=== PATIENT | female | born 1960 | race Caucasian/White ===

== ENCOUNTER → 2017-10-29 06:35 | Outpatient (CLI) | payer MEDICARE, SELFPAY ==
--- NOTE | 2017-10-29 14:02 | STRESSREP ---
Stress Test Report Date: 10/29/2017 Procedure: Pharmacologic stress nuclear imaging study Indications: Chest pain Consent: Per the patient Procedure: The patient underwent pharmacologic (Regadenoson) evaluation with a peak heart rate of 100 beats per minute (60 predicted maximal heart rate) and a peak blood pressure of 142/90 mmHg. The baseline ECG demonstrated normal sinus rhythm. The peak pharmacologic ECG demonstrated no obvious ECG changes. There were no cardiac dysrhythmias pretest, during pharmacologic infusion, or recovery. There was no complaint of chest discomfort during pharmacologic infusion or recovery. The examination was discontinued secondary to completion of protocol. Impression: 1. Pharmacologic (Regadenoson) evaluation 2. Peak pharmacologic ECG with no obvious ECG changes. 3. There were no cardiac dysrhythmias pretest, during pharmacologic infusion, or recovery 4. Nuclear images pending Myocardial perfusion imaging study: Technique: The patient was injected with 10.7 millicuries of technetium 99m Cardiolite and subsequently rest SPECT Cardiolite nuclear imaging was obtained in the horizontal long, vertical long, and short axis views. The patient underwent pharmacologic (Regadenoson) evaluation with a peak heart rate of 100 beats per minute (60 % percent predicted maximal heart rate) and a peak blood pressure of 142/90 mmHg. The patient was injected with 32.1 millicuries of technetium 99m Cardiolite and subsequently stress SPECT Cardiolite nuclear imaging was obtained in the horizontal long, vertical long, and short axis views. A gated Cardiolite study at peak stress was obtained. Interpretation: Rest and stress SPECT Cardiolite nuclear imaging status post realignment, normalization, and attenuation correction demonstrate relative uniform tracer uptake and myocardial perfusion appearing within normal limits. There is end systolic thickening and brightening. The gated Cardiolite study demonstrates myocardial thickening and inward wall motion. The reported LVEF is 72 %. Impression: 1. Rest and stress SPECT Cardiolite nuclear imaging demonstrate relative uniform tracer uptake and myocardial perfusion appearing within normal limits. 2. The gated Cardiolite study reports an LVEF of 72 %. This note was generated with [employer] software. It may contain incorrect words, spelling, and punctuation that were not noted in checking the note before signing.
== END ==
PROVIDERS: Family Provider Internal Medicine; PCP Internal Medicine; Visit Provider Nurse Practitioner Family
DX: R07.9 Chest pain, unspecified (principal); R06.09 Other forms of dyspnea; F17.210 Nicotine dependence, cigarettes, uncomplicated
CPT/HCPCS: 78452; 93017; A9500; A4216; J2785

== ENCOUNTER → 2017-11-19 07:20 | Outpatient (CLI) | payer MEDICARE, SELFPAY ==
[2017-11-19 10:40] LABS: Absolute Lymphocyte Count 1.57 X10^3/ul (0.83-4.51); Absolute Neutrophil Count 3.2 X10^3/uL (2.0-7.7); Basophil# 0.04 X10^3/uL; Basophil% 0.7 % (0-1); Eosinophil# 0.14 X10^3/uL; Eosinophils% 2.6 % (0-5); Hematocrit 44.5 % (37-47); Hemoglobin 14.6 g/dl (12.0-15.0); Lymphocyte # 1.57 X10^3/ul (4.0); Lymphocyte % 29.4 % (19-41); Mean Corp Hgb Conc 32.8 g/gl (32-36); Mean Corpuscular Volume 100.7 fL (81-99); Mean Platelet Vol. 10.1 fl (6.2-12.0); Monocyte# 0.34 X10^3/uL; Monocyte% 6.4 % (0-10); Neutrophil # 3.24 X10^3/uL (2.7-7.7); Neutrophil % 60.7 % (47-70); Platelet Count 275 K/mm3 (150-450); RBC Distribution Width SD 47.4 fl (35.1-43.9); Red Blood Count 4.42 M/mm3 (4.2-5.4); White Blood Count 5.3 K/mm3 (4.4-11.0)
[2017-11-19 10:48] LABS: POSITIVE COUNT NO; POSITIVE DIFFERENTIAL NO; POSITIVE MORPHOLOGY NO
[2017-11-19 10:56] LABS: ALB/GLOB Ratio 1.2 RATIO (0.9-2.4); AST(SGOT) 20 U/L (15-37); Alanine Aminotransfer ALT/SGPT 25 U/L (13-56); Albumin, Serum 3.7 g/dL (3.2-5.0); Alkaline Phosphatase 76 U/L (45-117); Anion Gap 8 (5-15); BUN 19 mg/dL (7-18); BUN/Creat Ratio 22.5 RATIO (10-20); Calcium,Total 8.6 mg/dL (8.5-10.1); Chloride 107 mmol/L (98-107); Cholesterol 189 mg/dL (200); Creatinine, Serum 0.84 mg/dL (0.55-1.02); EST Glomerular Filtration Rate 74 mL/min (>60); Est Glom Filt Rate - Afr Amer 90 mL/min (>60); Globulin 3.1 g/dL (2.2-4.2); Glucose 82 mg/dL (74-106); High Density Lipoprotein 68 mg/dL; Potassium 3.8 mmol/L (3.5-5.1); Protein, Total 6.8 g/dL (6.4-8.2); Sodium Level 143 mmol/L (136-145); Triglycerides 77 mg/dL; Very Low Density Lipoprotein 15 mg/dL (5-40)
[2017-11-19 10:59] LABS: Vitamin B12 1991 pg/mL (211-911)
== END ==
PROVIDERS: Family Provider Internal Medicine; PCP Internal Medicine; Visit Provider Internal Medicine
DX: E53.8 Deficiency of other specified B group vitamins (principal); E55.9 Vitamin D deficiency, unspecified; I10 Essential (primary) hypertension; J02.9 Acute pharyngitis, unspecified
CPT/HCPCS: 36415; 80053; 80061; 82306; 82607; 85025

== ENCOUNTER → 2017-11-25 10:47 | Outpatient (CLI) | payer MEDICARE, SELFPAY | PROVIDERS: Family Provider Internal Medicine; PCP Internal Medicine; Visit Provider Internal Medicine | DX: Z78.0 Asymptomatic menopausal state (principal) | CPT/HCPCS: 77080 ==

== ENCOUNTER → 2018-04-20 15:22 | Outpatient (CLI) | payer MEDICARE, SELFPAY ==
[2018-04-06 10:02] VITALS: BMI 25.4
[2018-04-20 17:51] LABS: Anion Gap 6 (5-15); BUN 19 mg/dL (7-18); BUN/Creat Ratio 19.3 RATIO (10-20); Calcium,Total 8.6 mg/dL (8.5-10.1); Chloride 107 mmol/L (98-107); Creatinine, Serum 0.98 mg/dL (0.55-1.02); EST Glomerular Filtration Rate 62 mL/min (>60); Est Glom Filt Rate - Afr Amer 75 mL/min (>60); Glucose 87 mg/dL (74-106); Sodium Level 143 mmol/L (136-145)
--- OUTSIDE RECORDS SUMMARY | 2018-06-25 14:45 | XMS RPT_ITS ---
:1960 Author Organization OHIP Support Name Relationship Address Phone D Unavailable Unavailable Unavailable JOSE, JUAN Unavailable Unavailable + JOSE, BETI Unavailable Unavailable + D Unavailable Unavailable Unavailable JOSE, JUAN Unavailable . + [place] [address] JOSE, BETI Unavailable . + [place] [address] D Unavailable Unavailable Unavailable JOSE, JUAN Unavailable . + [place] [address] JOSE, BETI Unavailable . + [place] [address] D Unavailable Unavailable Unavailable JOSE, JUAN Unavailable . + [place] [address] JOSE, BETI Unavailable . + [place] [address] D Unavailable Unavailable Unavailable JOSE, JUAN Unavailable . + [place] [address] JOSE, BETI Unavailable . + [place] [address] D Unavailable Unavailable Unavailable JOSE, JUAN Unavailable . + [place] [address] JOSE, BETI Unavailable . + [place] [address] D Unavailable Unavailable Unavailable JOSE, JUAN Unavailable . + [place] [address] D Unavailable Unavailable Unavailable JOSE, JUAN Unavailable Unavailable + [place] [address] D Unavailable Unavailable Unavailable JOSE, JUAN Unavailable . + [place] [address] JOSE, BETI Unavailable . + [place] [address] [employer] Unavailable [address] [place] [address] JOSE, JUAN Unavailable [address] + [place] [address] [employer] Un[address] [place] [address] JUAN GARCIA Unavailable [address] + [place] [address] [employer] Unavailable [address] [place] [address] JOSE JUAN Unavailable [address] + [place] [address] [employer] Unavailable [address] [place] [address] JOSE JUAN Unavailable [address] + [place] [address] [employer] Unavailable [address] [place] [address] JUAN GARCIA Unavailable [address] + [place] [address] Care Team Providers Name Role Phone [place] Fall NURSE WOUND CARE-C Attending Unavailable Oleghe, Efewongbe Referring Unavailable [place] Fall NURSE WOUND CARE-C Attending Unavailable [place] Fall NURSE WOUND CARE-C Referring Unavailable Oleghe, Efewongbe Primary Care Unavailable Oleghe, Efewongbe Attending Unavailable Oleghe, Efewongbe Referring Unavailable Oleghe, Efewongbe Primary Care Unavailable Oleghe, Efewongbe Attending Unavailable Oleghe, Efewongbe Referring Unavailable Oleghe, Efewongbe Primary Care Unavailable Oleghe, Efewongbe Attending Unavailable Oleghe, Efewongbe Referring Unavailable John Dobson Attending Unavailable Oleghe, Efewongbe Referring Unavailable Sree Sahu Attending Unavailable John Dobson Referring Unavailable Sree Sahu Attending Unavailable Sree Sahu Referring Unavailable Oleghe, Efewongbe Primary Care Unavailable Oleghe, Efewongbe Attending Unavailable Oleghe, Efewongbe Referring Unavailable Oleghe, Efewongbe Primary Care Unavailable Oleghe, Efewongbe Attending Unavailable Oleghe, Efewongbe Referring Unavailable Oleghe, Efewongbe Primary Care Unavailable Oleghe, Efewongbe Attending Unavailable Oleghe, Efewongbe Primary Care Unavailable John Dobson Attending Unavailable Oleghe, Efewongbe Attending Unavailable Oleghe, Efewongbe Referring Unavailable Oleghe, Efewongbe Primary Care Unavailable Oleghe, Efewongbe Attending Unavailable Oleghe, Efewongbe Referring Unavailable PROBLEMS PROBLEMS DATE TYPE CONDITION / CODE ATTENDING STATUS SOURCE 04/20/2018 Unknown I10 - Essential [place] Fall Active [place] (primary) NURSE WOUND CARE-C [facility] hypertension / Hospital I10(ICD-10) Repository 11/22/2017 Unknown E53.8 - Deficiency Oleghe, Active [place] of other specified [facility] B group vitamins / Hospital E53.8(ICD-10) Repository 11/11/2017 Unknown E55.9 - Vitamin D Oleghe, Active [place] deficiency, [facility] unspecified / Hospital E55.9(ICD-10) Repository 11/11/2017 Unknown J02.9 - Acute Oleghe, Active [place] pharyngitis, [facility] unspecified / Hospital J02.9(ICD-10) Repository 11/11/2017 Unknown Z78.0 - Oleghe, Active [place] Asymptomatic [facility] menopausal state / Hospital Z78.0(ICD-10) Repository 10/22/2017 Unknown R07.9 - Chest pain, Sree Sahu Active [place] unspecified / Community R07.9(ICD-10) Hospital Repository 10/22/2017 Unknown R06.09 - Other Sree Sahu Active [place] forms of dyspnea / Community R06.09(ICD-10) Hospital Repository 10/22/2017 Unknown F17.210 - Nicotine Sree Sahu Active [place] dependence, [facility] cigarettes, Hospital uncomplicated / Repository F17.210(ICD-10) 07/23/2017 Unknown N76.89 - Other Oleghe, Active [place] specified [facility] inflammation of Hospital vagina and vulva / Repository N76.89(ICD-10) PROCEDURES PROCEDURES No Procedure Records FoundRESULTS RESULTS BASIC METABOLIC Collected: 04/20/2018 Status: F Source: [place] PROFILE (BMP) 3:32 PM [facility] REPOSITORY TYPE CODE TESTS RESULT OUT OF RANGE REFERENCE UNITS LAB L501.0100 74-106 mg/dL Normal GLU 87 Result Comment: Please note revised GLUCOSE reference range effective 2017. LAB L501.1000 7-18 mg/dL High BUN 19 LAB L501.1100 0.55-1.02 mg/dL Normal CREAT,SERUM 0.98 Result Comment: The validity of the calculated GFR AND GFRAA in patients over 70 years has not been determined. Clinical correlation is essential. LAB L501.1110 >60 mL/min Normal EST GFR 62 Result Comment: Non- GFR Calc LAB L501.1115 >60 mL/min Normal EST GFR - AA 75 Result Comment: GFR Calc LAB L501.1300 10-20 RATIO Normal BUN/CRE 19.3 LAB L501.2200 8.5-10.1 mg/dL CA Normal 8.6 LAB L501.5300 136-145 mmol/L NA Normal 143 LAB L501.5600 3.5-5.1 mmol/L K Normal 4.0 LAB L501.5900 98-107 mmol/L CL Normal 107 LAB L501.6100 21.0-32.0 mmol/L Normal CO2 30.0 LAB L501.6200 5-15 Normal GAP 6 Performed By: #### L500.2500 #### [facility] [address] [place], [address] INTERNAL MEDICINE Observed: 04/10/2018 Status: F Source: [place] OFFICE VISIT 4:56 PM [facility] REPOSITORY [facility] [address] [place] [address] OFFICE VISIT Date of Service: 04/06/18 MR#: [id number] Acct: [id number] Name: MARIANNE GARCIA Rep #: [id number] : 1960 Provider: Boston Fall NP Age/Sex: 58/F Location: [facility] Status: Signed Intake Vital Signs04/06/18 Height 5 ft 6 in 04/06/18 Weight: 158 lb 04/06/18 Body Mass Index (BMI) 25.4 04/06/18 Blood Pressure 153/92 H Intake Visit Reasons: HTN with symptoms Chief Complaint: HTN - blurry vision, headache, AND ringing in ears Is patient in pain?: No Allergies modafinil [From Provigil] Allergy (Verified 04/06/18 10:04) Other Medications Aspirin E.C. [Ecotrin] 81 mg PO DAILY@0800 04/15/15 [History Confirmed 04/06/18] Cholecalciferol (VIT D3) [Vitamin D3] 4,000 unit PO DAILY 04/15/15 [History Confirmed 04/06/18] Clonazepam [Klonopin] 0.25 mg PO TID PRN PRN 04/15/15 [History Confirmed 04/06/18] Cyanocobalamin (Vitamin B-12) [Vitamin B-12] 1,000 mcg PO DAILY 04/15/15 [History Confirmed 04/06/18] Ferrous Sulfate [Iron Supplement] 65 mg PO DAILY 04/15/15 [History Confirmed 04/06/18] Ibuprofen [Motrin] 600 mg PO TID PRN PRN 04/15/15 [History Confirmed 04/06/18] traMADol [Ultram] 100 mg PO Q8H PRN PRN 04/15/15 [History Confirmed 04/06/18] Aspirin/Acetaminophen/Caffeine [Excedrin Extra Strength Caplet] 2 tab PO PRN PRN 07/01/15 [History Confirmed 04/06/18] Baclofen 1 - 2 tab PO QHS PRN 07/01/15 [History Confirmed 04/06/18] buspirone 5 mg tablet 5 mg PO TID tab 04/14/17 [History Confirmed 04/06/18] propranolol 40 mg tablet 40 mg PO Q12H #180 tab 06/24/17 [Rx Confirmed 04/06/18] duloxetine 30 mg capsule,delayed release 30 mg PO BID 07/23/17 [History Confirmed 04/06/18] pramipexole 0.5 mg tablet 0.5 mg PO QHS #60 tab 11/01/17 [Rx Confirmed 04/06/18] fluticasone 50 mcg/actuation nasal spray,suspension 2 spray INTRANASAL DAILY PRN PRN #19.8 g 11/11/17 [Rx Confirmed 04/06/18] omeprazole 20 mg capsule,delayed release 20 mg PO QDAY #60 cap 11/11/17 [Rx Confirmed 04/06/18] dicyclomine 20 mg tablet 20 mg PO TID PRN #60 tab 01/18/18 [Rx Confirmed 04/06/18] fluocinonide 0.05 % topical cream 1 applic TOPICAL BID-QID PRN 01/18/18 [History Confirmed 04/06/18] metronidazole 0.75 % lotion 1 applic TOPICAL BID 01/18/18 [History Confirmed 04/06/18] albuterol sulfate HFA 90 mcg/actuation aerosol inhaler 1 puff INHALATION Q6H PRN #8.5 g 04/06/18 [Rx Confirmed 04/06/18] lamotrigine 100 mg tablet 100 mg PO BID 04/06/18 [History Confirmed 04/06/18] lisinopril 10 mg tablet 10 mg PO QDAY #30 tab 04/06/18 [Rx Confirmed 04/06/18] trazodone 100 mg tablet 100 mg PO DAILY 04/06/18 [History Confirmed 04/06/18] [facility] Medical History Hypertension (Chronic) Transverse myelitis (Chronic) Breast cancer (Chronic) Mitral valve prolapse (Chronic) Vitamin B12 deficiency (Chronic) Vitamin D deficiency (Chronic) GERD (gastroesophageal reflux disease) (Chronic) IBS (irritable bowel syndrome) (Chronic) Depression with anxiety (Chronic) Asthma (Chronic) Seasonal allergies (Chronic) Contact dermatitis (Acute) HPV test positive (Acute) History of hysterectomy (Acute) Anorexia (Resolved) Surgical History Anal fissure and fistula (Acute) H/O laparoscopy (Acute) History of colon resection (Acute) carpal tunnel release surgery (Acute) lumpecomy and lymph node biopsy of the right breast (Acute) right and left foot surgery (Acute) uterine balloon ablation (Acute) Family History Father CVA (cerebral vascular accident) Hypertension Mother Depression Anxiety Asthma COPD (chronic obstructive pulmonary disease) Sister Lupus Grandmother Asthma Social History Smoking Status: Heavy Smoker (>10/day) alcohol intake: current alcohol intake frequency: a few times a week Alcohol type: wine substance use type: does not use what type of physical activity do you participate in: none HPI HPI Chief Complaint: HTN - blurry vision, headache, AND ringing in ears Details: MARIANNE GARCIA, is a 58 F who presents to the office today for an acute visit of high blood pressure. She has a past medical history is as above. The patient states that over the last couple weeks she has noticed that her blood pressure has been increasing and she brings with her a log that averages 150s-170s systolic over 90s to low 100s diastolic. The patient states that she has had an increase in headaches, blurry vision at times and ringing the ears at times which she attributes to her high blood pressure. She denies any excessive sodium intake and states that she has been limiting her caffeine intake. Her blood pressure in office is elevated at 153/92. She denies any other aggravating or relieving symptoms. The patient otherwise denies any fever, chills, nausea, vomiting, shortness of breath, chest pain or pressure, palpitations, orthopnea, lower extremity edema, syncope or presyncopal episodes. ROS Const Constitutional: Positive for headache(s) (Continous); no chills, fatigue, fever(s), frequent falls, malaise, weakness, sleep problems or change in appetite Eyes Eyes: Positive for blurry vision; no change in vision, double vision, discharge or visual disturbances ENT ENT: Positive for tinnitus (Worse) and headache(s) (Continous); no abnormal hearing, ear pain, ear pressure or dizziness/vertigo Resp Respiratory: No cough, shortness of breath or wheezing Cardio Cardiology: No chest pain at rest, chest pain with exertion, shortness of breath, dyspnea on exertion, generalized swelling, irregular heart rhythm, lightheadedness, orthopnea, fast heart rate or palpitations Gastro GI: No abdominal pain, change in bowel habits, constipation, diarrhea, nausea/dyspepsia or vomiting Genitourinary-Female: No difficulty urinating, burning urination, painful urination, urinary incontinence, urinary frequency, urinary urgency, urinary hesitancy, urinary retention, Frequent nighttime urination/ nocturia, sexual problems, genital lesions, abnormal vaginal bleeding, pelvic pain, vaginal dryness, vaginal odor or Vaginal Itching Musc Musculoskeletal: No joint pain, back pain, joint swelling, limited range of motion, numbness, tingling or muscle weakness Skin Skin: No change in skin color, itching, rash or wounds Breast Breast: No breast lump or breast pain Neuro Neurology: Positive for headache(s) (Continous); no frequent falls, weakness, visual disturbances, abnormal hearing, numbness, tingling, unsteady gait/balance, dizziness, loss of vision or memory loss Psych Psychiatric: No change in appetite, No memory loss, No anxiety, No depression, No Thoughts of harming yourself/Others Endo Endocrine: No fatigue, heat intolerance, increased thirst/drinking, increased hunger or increased urination Aller/Imm Allergy/Immunologic: No wheezing, itchy eyes or seasonal allergy symptoms Tomas/Lymp Hematologic/Lymphatic: No easy bleeding, easy bruising or enlarged lymph nodes Exam Const General: cooperative, no acute distress, well developed Orientation: alert, awake, oriented x3 HENMT Head: atraumatic, normocephalic Ears: hearing grossly normal bilaterally Resp Effort AND Inspection: normal respiratory effort, able to speak in complete sentences Auscultation: Bilateral: Clear to Auscultation Cardio Rate: regular rate Rhythm: regular rhythm Heart Sounds: S1 normal, S2 normal GI Inspection: normal to inspection Palpation: soft, no hepatosplenomegaly Musc Musculoskeletal: No muscle weakness Neuro General: alert, awake, oriented x3, moves all extremities, CN's II-XI intact bilaterally, no focal motor deficits, gait normal, tone normal Motor: strength 5/5 throughout, muscle tone normal throughout Extrem General: no clubbing, cyanosis or edema Psych Appearance: grossly normal Mental Status: mental status grossly normal Affect: normal affect Assessment AND Plan Problems 1. Essential hypertension I10 Plan Hypertension: Blood pressure is suboptimal at this time. Will make changes to current medication regimen which include the addition of lisinopril 10 mg daily. Baseline labs reviewed. Educated patient on the potential side effects of the new medication and to keep a log of their blood pressures at home discussed dropping off the log in 2 weeks. Discussed risk factor reduction and lifestyle modifications. Discussed dietary changes that should be considered which include reducing the amount of sodium intake. Patient instructed to follow up in 6 weeks for hypertension follow up visit and a BMP will be done in 2 weeks. Orders Orders: Medications New: albuterol sulfate HFA 90 mcg/actuation (ProAi1 puff Inhalation Q6H PRN 8.5 grams 1RF shor r HFA) tness of breath or wheezing Plan Detail Follow Up 6 weeks or sooner if needed Coding Level of Care Code Off vis,est,level 3 Diagnoses Essential hypertension I10 Hypertension type: essential hypertension 04/10/18 6950 <Electronically signed by [place] Fall NURSE WOUND CAREDamasoC> Date Boston Calderonder NURSE WOUND CARE-C Cosigner Signature: Date (if applicable) CC: INTERNAL MEDICINE Observed: 01/20/2018 Status: F Source: [place] OFFICE VISIT 5:02 PM [facility] [address] [place] [address] OFFICE VISIT Date of Service: 01/18/18 MR#: [id number] Acct: [id number] Name: MARIANNE GARCIA Rep #: [id number] : 1960 Provider: Jayden Smith MD Age/Sex: 58/F Location: [facility] Status: Signed Intake Vital Signs01/18/18 Height 5 ft 6 in Intake Visit Reasons: 1 MO FU Chief Complaint: Problem with legs feeling weak AND Bowel problems Is patient in pain?: Yes (hip pain) Pain scale (1-10): 3 Allergies modafinil [From Provigil] Allergy (Verified 12/21/17 09:19) Other Medications Aspirin E.C. [Ecotrin] 81 mg PO DAILY@0800 04/15/15 [History Confirmed 12/21/17] Cholecalciferol (VIT D3) [Vitamin D3] 4,000 unit PO DAILY 04/15/15 [History Confirmed 12/21/17] Clonazepam [Klonopin] 0.25 mg PO TID PRN PRN 04/15/15 [History Confirmed 12/21/17] Cyanocobalamin (Vitamin B-12) [Vitamin B-12] 1,000 mcg PO DAILY 04/15/15 [History Confirmed 12/21/17] Ferrous Sulfate [Iron Supplement] 65 mg PO DAILY 04/15/15 [History Confirmed 12/21/17] Ibuprofen [Motrin] 600 mg PO TID PRN PRN 04/15/15 [History Confirmed 12/21/17] traMADol [Ultram] 100 mg PO Q8H PRN PRN 04/15/15 [History Confirmed 12/21/17] Aspirin/Acetaminophen/Caffeine [Excedrin Extra Strength Caplet] 2 tab PO PRN PRN 07/01/15 [History Confirmed 12/21/17] Baclofen 1 - 2 tab PO QHS PRN 07/01/15 [History Confirmed 12/21/17] buspirone 5 mg tablet 5 mg PO TID tab 04/14/17 [History Confirmed 12/21/17] propranolol 40 mg tablet 40 mg PO Q12H #180 tab 06/24/17 [Rx Confirmed 12/21/17] duloxetine 30 mg capsule,delayed release 30 mg PO BID 07/23/17 [History Confirmed 12/21/17] pramipexole 0.5 mg tablet 0.5 mg PO QHS #60 tab 11/01/17 [Rx Confirmed 12/21/17] fluticasone 50 mcg/actuation nasal spray,suspension 2 spray INTRANASAL DAILY PRN PRN #19.8 g 11/11/17 [Rx Confirmed 12/21/17] omeprazole 20 mg capsule,delayed release 20 mg PO QDAY #60 cap 11/11/17 [Rx Confirmed 12/21/17] trazodone 50 mg tablet 50 mg PO QHS 12/21/17 [History Confirmed 12/21/17] fluocinonide 0.05 % topical cream 1 applic TOPICAL BID-QID PRN 01/18/18 [History Confirmed 01/18/18] ketoconazole 2 % shampoo 1 applic TOPICAL Q2W 01/18/18 [History Confirmed 01/18/18] lamotrigine 25 mg tablet 25 mg PO BID 01/18/18 [History Confirmed 01/18/18] metronidazole 0.75 % lotion 1 applic TOPICAL BID 01/18/18 [History Confirmed 01/18/18] Post menopausal: Yes PFSH Medical History Hypertension (Chronic) Transverse myelitis (Chronic) Breast cancer (Chronic) Mitral valve prolapse (Chronic) Vitamin B12 deficiency (Chronic) Vitamin D deficiency (Chronic) GERD (gastroesophageal reflux disease) (Chronic) IBS (irritable bowel syndrome) (Chronic) Depression with anxiety (Chronic) Asthma (Chronic) Seasonal allergies (Chronic) Contact dermatitis (Acute) HPV test positive (Acute) History of hysterectomy (Acute) Anorexia (Resolved) Surgical History Anal fissure and fistula (Acute) H/O laparoscopy (Acute) History of colon resection (Acute) carpal tunnel release surgery (Acute) lumpecomy and lymph node biopsy of the right breast (Acute) right and left foot surgery (Acute) uterine balloon ablation (Acute) Family History Father CVA (cerebral vascular accident) Hypertension Mother Depression Anxiety Asthma COPD (chronic obstructive pulmonary disease) Sister Lupus Grandmother Asthma Social History Smoking Status: Heavy Smoker (>10/day) alcohol intake: current alcohol intake frequency: a few times a week Alcohol type: wine substance use type: does not use what type of physical activity do you participate in: none HPI HPI Chief Complaint: Problem with legs feeling weak AND Bowel problems Details: MARIANNE GARCIA, is a 58yo F who presents to the office today due to concerns of occasional leg weakness and right hip pain. She was seen about a month ago predominantly right lower extremity heaviness. She now reports right hip pain which is said to be worse with initial movement and on laying on that side. 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 There is no numbness or tingling no other neurological deficits. She is not able to exercise due to her long periods of driving. Also has a history of irritable bowel syndrome and reports bloating/constipation. She denies blood in her stool. Last colonoscopy was about 2 years ago and this was within normal. ROS Const Constitutional: No weight change, body ache, chills, fatigue, sleep problems, fever(s), change in appetite, snoring, weakness, frequent falls, headache(s) or excessive sweating Eyes Eyes: No change in vision, eye pain, light sensitivity or blurry vision ENT ENT: No headache(s), abnormal hearing, ear pain, tinnitus, nasal congestion, sore throat or neck pain Resp Respiratory: No snoring, cough, shortness of breath or wheezing Cardio Cardiology: No excessive sweating, chest pain at rest, chest pain with exertion, shortness of breath, dyspnea on exertion, palpitations, orthopnea or lightheadedness Gastro GI: Positive for bloating; no abdominal pain, change in bowel habits, constipation, diarrhea, vomiting, nausea/dyspepsia or cramping Genitourinary-Female: No burning urination, painful urination, urinary incontinence, urinary frequency, abnormal vaginal bleeding, pelvic pain or other Musc Musculoskeletal: Positive for other (right hip pain); no neck pain, abnormal walking, joint pain, back pain, limited range of motion, numbness, tingling or muscle weakness Skin Skin: No redness, dry skin, itching, lesions, wounds or rash Neuro Neurology: No weakness, frequent falls, headache(s), abnormal hearing, abnormal walking, numbness, tingling, abnormal speech, dizziness or memory loss Psych Psychiatric: No change in appetite, No memory loss, No anxiety, No depression, No Thoughts of harming yourself/Others Endo Endocrine: No fatigue, excessive sweating, cold intolerance, increased thirst/drinking, heat intolerance, flushing or increased hunger Aller/Imm Allergy/Immunologic: No wheezing, itchy eyes, hives or seasonal allergy symptoms Tomas/Lymp Hematologic/Lymphatic: No easy bleeding, easy bruising or enlarged lymph nodes Exam Const General: cooperative, no acute distress, well developed Orientation: alert, awake, oriented x3 HENMT Head: atraumatic, normocephalic Ears: hearing grossly normal bilaterally Resp Effort AND Inspection: normal respiratory effort, able to speak in complete sentences Auscultation: Bilateral: Clear to Auscultation Cardio Rate: regular rate Rhythm: regular rhythm Heart Sounds: S1 normal, S2 normal GI Inspection: normal to inspection Palpation: soft, no hepatosplenomegaly Musc Musculoskeletal: No muscle weakness Thoracic/Lumbar Spine: straight leg raise negative bilaterally Neuro General: alert, awake, oriented x3, moves all extremities, CN's II-XI intact bilaterally, no focal motor deficits, gait normal, tone normal Motor: strength 5/5 throughout, muscle tone normal throughout Extrem General: no clubbing, cyanosis or edema Psych Appearance: grossly normal Mental Status: mental status grossly normal Affect: normal affect Assessment AND Plan 1. Hip pain, right M25.551 Plan Most likely secondary to osteoarthritis. NSAIDs as needed. Exercise also recommended. Due to her frequent traveling/being on the road, not open to physical therapy at this time. Advised to call with worsening symptoms or concerns. 2. Lower extremity pain M79.606 Plan I believe this is mostly due to lifestyle. No concerns on examination at this time. 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 Follow-up at next visit. 3. IBS (irritable bowel syndrome) K58.9 Plan Next. Currently concerned with bloating and constipation. However frequently has diarrhea with laxatives. Lifestyle modifications discussed. Increase fluid, increased fiber intake and continued use of probiotics recommended for now. Dicyclomine as needed. Follow-up at next visit. This note was generated with [employer] dictation software. It may contain incorrect words, spelling, and punctuation that were not noted in checking the note before signing. Coding Level of Care Code Off vis,est,level 3 Diagnoses Hip pain, right M25.551 Lower extremity pain M79.606 IBS (irritable bowel syndrome) K58.9 01/20/18 1702 <Electronically signed by Jayden Smith MD> Date Jayden Smith MD Cosigner Signature: Date (if applicable) CC: INTERNAL MEDICINE Observed: 12/21/2017 Status: F Source: [place] OFFICE VISIT 5:16 PM [facility] [employer], [place] [address] OFFICE VISIT Date of Service: 12/21/17 MR#: [id number] Acct: [id number] Name: MARIANNE GARCIA Rep #: [id number] : 1960 Provider: Jayden Smith MD Age/Sex: 57/F Location: [facility] [place] Status: Signed Intake Vital Signs12/21/17 Height 5 ft 6 in 12/21/17 Weight: 160 lb 12/21/17 Body Mass Index (BMI) 25.8 12/21/17 Blood Pressure 132/88 Intake Visit Reasons: PROB W LEGS AND BOWELS FOR SOME TIME Chief Complaint: Problem with legs feeling weak AND Bowel problems Is patient in pain?: Yes (legs ache 9) Allergies modafinil [From Provigil] Allergy (Verified 12/21/17 09:19) Other Medications Aspirin E.C. [Ecotrin] 81 mg PO DAILY@0800 04/15/15 [History Confirmed 12/21/17] Cholecalciferol (VIT D3) [Vitamin D3] 4,000 unit PO DAILY 04/15/15 [History Confirmed 12/21/17] Clonazepam [Klonopin] 0.25 mg PO TID PRN PRN 04/15/15 [History Confirmed 12/21/17] Cyanocobalamin (Vitamin B-12) [Vitamin B-12] 1,000 mcg PO DAILY 04/15/15 [History Confirmed 12/21/17] Ferrous Sulfate [Iron Supplement] 65 mg PO DAILY 04/15/15 [History Confirmed 12/21/17] Ibuprofen [Motrin] 600 mg PO TID PRN PRN 04/15/15 [History Confirmed 12/21/17] traMADol [Ultram] 100 mg PO Q8H PRN PRN 04/15/15 [History Confirmed 12/21/17] Aspirin/Acetaminophen/Caffeine [Excedrin Extra Strength Caplet] 2 tab PO PRN PRN 07/01/15 [History Confirmed 12/21/17] Baclofen 1 - 2 tab PO QHS PRN 07/01/15 [History Confirmed 12/21/17] buspirone 5 mg tablet 5 mg PO TID tab 04/14/17 [History Confirmed 12/21/17] propranolol 40 mg tablet 40 mg PO Q12H #180 tab 06/24/17 [Rx Confirmed 12/21/17] duloxetine 30 mg capsule,delayed release 30 mg PO BID 07/23/17 [History Confirmed 12/21/17] pramipexole 0.5 mg tablet 0.5 mg PO QHS #60 tab 11/01/17 [Rx Confirmed 12/21/17] fluticasone 50 mcg/actuation nasal spray,suspension 2 spray INTRANASAL DAILY PRN PRN #19.8 g 11/11/17 [Rx Confirmed 12/21/17] omeprazole 20 mg capsule,delayed release 20 mg PO QDAY #60 cap 11/11/17 [Rx Confirmed 12/21/17] trazodone 50 mg tablet 50 mg PO QHS 12/21/17 [History Confirmed 12/21/17] PFSH Medical History Hypertension (Chronic) Transverse myelitis (Chronic) Breast cancer (Chronic) Mitral valve prolapse (Chronic) Vitamin B12 deficiency (Chronic) Vitamin D deficiency (Chronic) GERD (gastroesophageal reflux disease) (Chronic) IBS (irritable bowel syndrome) (Chronic) Depression with anxiety (Chronic) Asthma (Chronic) Seasonal allergies (Chronic) Contact dermatitis (Acute) HPV test positive (Acute) Anorexia (Resolved) Surgical History Anal fissure and fistula (Acute) H/O laparoscopy (Acute) History of colon resection (Acute) History of hysterectomy (Acute) carpal tunnel release surgery (Acute) lumpecomy and lymph node biopsy of the right breast (Acute) right and left foot surgery (Acute) uterine balloon ablation (Acute) Family History Father CVA (cerebral vascular accident) Hypertension Mother Depression Anxiety Asthma COPD (chronic obstructive pulmonary disease) Sister Lupus Grandmother Asthma Social History Smoking Status: Heavy Smoker (>10/day) alcohol intake: current alcohol intake frequency: a few times a week Alcohol type: wine substance use type: does not use what type of physical activity do you participate in: none HPI HPI Chief Complaint: Problem with legs feeling weak AND Bowel problems Details: MARIANNE GARCIA, is a 57yo F who presents to the office today for follow-up. She also has some concerns. She reports bilateral lower extremity heaviness and occasional pain. Pain is said to improve with ibuprofen. There is no significant rhyme or reason to this feeling. She however admits to not being as active and has gained some weight lately. No neurological deficits and no history of falls. He also has a history of irritable bowel syndrome and has noted recent watery bowel movements. Previously had had episodes of diarrhea and alternating constipation. She denies any dietary changes or recent travels. Feels well otherwise denies chills, nausea or vomiting. ROS Const Constitutional: Positive for weakness (Legs); no chills, fatigue, fever(s), frequent falls, malaise, sleep problems or change in appetite Eyes Eyes: No blurry vision, change in vision, double vision, discharge or visual disturbances ENT ENT: No abnormal hearing, ear pain, ear pressure, tinnitus or dizziness/vertigo Resp Respiratory: No cough, shortness of breath or wheezing Cardio Cardiology: No chest pain at rest, chest pain with exertion, shortness of breath, dyspnea on exertion, generalized swelling, irregular heart rhythm, lightheadedness, orthopnea, fast heart rate or palpitations Gastro GI: Positive for abdominal pain, change in bowel habits, excessive flatus and bloating; no diarrhea, nausea/dyspepsia or vomiting Genitourinary-Female: No difficulty urinating, burning urination, painful urination, urinary incontinence, urinary frequency, urinary urgency, urinary hesitancy, urinary retention, Frequent nighttime urination/ nocturia, sexual problems, genital lesions, abnormal vaginal bleeding, pelvic pain, vaginal dryness, vaginal odor or Vaginal Itching Musc Musculoskeletal: Positive for abnormal walking; no joint pain, back pain, joint swelling, limited range of motion, numbness, tingling or muscle weakness Skin Skin: No change in skin color, itching, rash or wounds Breast Breast: No breast lump or breast pain Neuro Neurology: Positive for weakness (Legs) and abnormal walking; no frequent falls, abnormal hearing, numbness, tingling, unsteady gait/balance, dizziness, loss of vision, memory loss or visual disturbances Psych Psychiatric: No memory loss, No anxiety, No change in appetite, No depression, No Thoughts of harming yourself/Others Endo Endocrine: No fatigue, heat intolerance, increased thirst/drinking, increased hunger or increased urination Aller/Imm Allergy/Immunologic: No wheezing, itchy eyes or seasonal allergy symptoms Tomas/Lymp Hematologic/Lymphatic: No easy bleeding, easy bruising or enlarged lymph nodes Exam Const General: cooperative, no acute distress, well developed Orientation: alert, awake, oriented x3 [facility] Head: atraumatic, normocephalic Ears: hearing grossly normal bilaterally Resp Effort AND Inspection: normal respiratory effort, able to speak in complete sentences Auscultation: Bilateral: Clear to Auscultation Cardio Rate: regular rate Rhythm: regular rhythm Heart Sounds: S1 normal, S2 normal GI Inspection: normal to inspection Palpation: soft, no hepatosplenomegaly Musc Musculoskeletal: No muscle weakness Neuro General: alert, awake, oriented x3, moves all extremities, CN's II-XI intact bilaterally, no focal motor deficits, gait normal, tone normal Motor: strength 5/5 throughout, muscle tone normal throughout Extrem General: no clubbing, cyanosis or edema Psych Appearance: grossly normal Mental Status: mental status grossly normal Affect: normal affect Assessment AND Plan 1. Lower extremity pain M79.606 Plan Pretty much described as lower extremity heaviness. No concerns on examination. Pain improves with Aleve and this is occasional. Exercise and increase fluid intake recommended. Advised to call the office with any worsening symptoms or neurological deficits 2. IBS (irritable bowel syndrome) K58.9 Plan Chronic history of bowel irregularities. Has noted watery small bowel movements over the last 3 weeks. No other concerns symptomatically. Advised to increase her fluid intake. Probiotics also recommended. Potassium rich foods recommended. Advised to call with any questions or concerns 3. Essential hypertension I10 Plan Stable. Continue current medication. This note was generated with [employer] dictation software. It may contain incorrect words, spelling, and punctuation that were not noted in checking the note before signing. Plan Detail Follow Up 1 Month Coding Level of Care Code Off vis,est,level 3 Diagnoses Lower extremity pain M79.606 IBS (irritable bowel syndrome) K58.9 Essential hypertension I10 Hypertension type: essential hypertension 12/21/17 1716 <Electronically signed by Jayden Smith MD> Date Jayden Smith MD Cosigner Signature: Date (if applicable) CC: DEXA BONE DENSITY Observed: 11/25/2017 Status: F Source: [place] [facility] 10:50 AM [facility] REPOSITORY [facility] Imaging Services [address] [place] [address] Dexa Bone Density Study MR#: [id number] Acct: [id number] Name: MARIANNE GARCIA Rep #: [id number] : 1960 F 57 From: Cale Green MD PCP: Jayden Smith MD Status: REG CLI Study: Dexa Bone Density Study Date of Exam: 11/25/17 Exam# [id number] Ordering Dr: Jayden Smith MD STUDY: DUAL ENERGY X-RAY ABSORPTIOMETRY / DXA REASON FOR EXAM: Female, 57 years old. Early menopause. No loss of height. TECHNIQUE: Bone Mineral Density (BMD) measurements of lumbar spine and bilateral hips were obtained. COMPARISON: Comparison is made with prior study dated 09/18/2015. FINDINGS: Lumbar Spine (L1-L4): g/cm2 (0.973) / T-score (-1.6) / Z-score (0.7) Findings are suggestive of osteopenia with a moderate fracture risk. Left Femur Total: g/cm2 (0.943) / T-score (-0.5) / Z- score (0.2) Left Femoral Neck: g/cm2 (0.850) / T-score (-1.4) / Z- score (-0.3) Right Femur Total: g/cm2 (0.911) / T-score (-0.8) / Z- score (0.0) Right Femoral Neck: g/cm2 (0.868) / T-score (-1.2) / Z-score (-0.1) The T-Scores on the most recent prior examination were: Left Femur Total: which represents a worsening of 3.6%. Right Femur Total: which represents a worsening of 2.9%. BD/Dexa Bone Density Study IMPRESSION: The patient is considered osteopenic as outlined below according to World Nathan Organization (WHO) criteria with a moderate fracture risk. There has been worsening of bone density since the previous examination. Reference Information: The T-score is the number of standard deviations above or below the standard which is normal for young adults at their peak bone mineral density. The World Health Organization (WHO) interprets the T-scores as follows: Above -1 Normal bone density Between -1 and -2.5 Osteopenia Equal to / or below -2.5 Osteoporosis As a practical clinical guideline, osteopenia may be graded as follows: Mild -1 through -1.5 Moderate -1.6 through -2.0 Severe -2.1 through -2.4 The Z-score is the number of standard deviations above or below age-matched controls. A Z-score of less than -1.5 would be considered abnormal. References: 1. NIH Osteoporosis and Related Bone Diseases http://www.osteo.org 2. International Society for Clinical Densitometry http://www.iscd.org 3. National Osteoporosis Foundation http://www.nof.org Electronically Signed: Cale Green MD at 13:46 EDT Tel [phone], Service support , CC: Jayden Smith MD Uniform Attendant: Signed CBC W/DIFF, AUTOMATED Collected: 11/19/2017 Status: F Source: [place] 7:23 AM [facility] REPOSITORY TYPE CODE TESTS RESULT OUT OF RANGE REFERENCE UNITS LAB L100.1000 4.4-11.0 K/mm3 Normal WBC 5.3 LAB L100.1200 4.2-5.4 M/mm3 Normal RBC 4.42 LAB L100.1300 12.0-15.0 g/dl Normal HGB 14.6 LAB L100.1400 37-47 % Normal HCT 44.5 LAB L100.1500 81-99 fL High MCV 100.7 LAB L100.1600 27.0-32.0 pg High MCH 33.0 LAB L100.1700 32-36 g/gl Normal MCHC 32.8 LAB L100.1810 11.6-14.6 % Normal RDW CV 13.0 LAB L100.1820 35.1-43.9 fl High RDW SD 47.4 LAB L100.1900 150-450 K/mm3 Normal PLT 275 LAB L100.2000 6.2-12.0 fl Normal MPV 10.1 LAB L100.2100 47-70 % Normal NEUT% 60.7 LAB L100.2200 19-41 % Normal LY% 29.4 LAB L100.2300 0-10 % Normal MONO% 6.4 LAB L100.2400 0-5 % Normal EO% 2.6 LAB L100.2500 0-1 % Normal BASO% 0.7 LAB L100.2550 0.0-0.9 % Normal IM GRAN % 0.200 Result Comment: IG% - Immature Granulocytes (promyelocytes, myelocytes and metamyelocytes) > 1% indicates that a LEFT SHIFT is Present. LAB L100.2620 2.0-7.7 X10 3/uL Normal Absolute Neut 3.2 LAB L100.2720 0.83-4.51 X10 3/ul Normal Absolute Lymph 1.57 Performed By: #### L100.0100 #### [facility] [address] [employer], [place], [address] COMPREHENSIVE METABOLIC Collected: 11/19/2017 Status: F [facility] REPOSIT[facility] TYPE CODE TESTS RESULT OUT OF RANGE REFERENCE UNITS LAB L501.0100 74-106 mg/dL Normal GLU 82 Result Comment: Please note revised GLUCOSE reference range effective 2017. LAB L501.1000 7-18 mg/dL High BUN 19 LAB L501.1100 0.55-1.02 mg/dL Normal CREAT,SERUM 0.84 Result Comment: The validity of the calculated GFR AND GFRAA in patients over 70 years has not been determined. Clinical correlation is essential. LAB L501.1110 >60 mL/min Normal EST GFR 74 Result Comment: Non- GFR Calc LAB L501.1115 >60 mL/min Normal EST GFR - AA 90 Result Comment: GFR Calc LAB L501.1300 10-20 RATIO High BUN/CRE 22.5 LAB L501.1500 6.4-8.2 g/dL T Normal PROT 6.8 LAB L501.1800 3.2-5.0 g/dL Normal ALB 3.7 LAB L501.1950 2.2-4.2 g/dL Normal GLOB 3.1 LAB L501.2000 0.9-2.4 RATIO Normal A/G 1.2 LAB L501.2200 8.5-10.1 mg/dL CA Normal 8.6 LAB L501.4100 15-37 U/L Normal AST 20 LAB L501.4305 45-117 U/L Normal ALK P 76 LAB L501.4405 13-56 U/L Normal ALT 25 LAB L501.4600 0.20-1.00 mg/dL T Normal BILI 0.30 LAB L501.5300 136-145 mmol/L NA Normal 143 LAB L501.5600 3.5-5.1 mmol/L K Normal 3.8 LAB L501.5900 98-107 mmol/L CL Normal 107 LAB L501.6100 21.0-32.0 mmol/L Normal CO2 28.0 LAB L501.6200 5-15 Normal GAP 8 Performed By: #### L500.4050, L500.4100, L503.0105, L506.1000 #### [facility] [address] [facility] [employer], [place], [id number] LIPID PROFILE Collected: 11/19/2017 Status: F Source: [place] 7:23 AM [facility] REPOSITORY TYPE CODE TESTS RESULT OUT OF RANGE REFERENCE UNITS LAB L501.4900 200 mg/dL Normal CHOL 189 Result Comment: <200 mg/dL Desirable 200-240 mg/dL Borderline >240 mg/dL High Risk LAB L501.5000 mg/dL Normal TRIG 77 Result Comment: The drugs N-Acetylcysteine and Metamizole may falsely depress this assay. Serum Triglycerides Reference Interval Normal <150 mg/dL Borderline high 150 - 199 mg/dL High 200 - 499 mg/dL Very High > or = 500 mg/dL LAB L501.6400 mg/dL Normal HDL 68 Result Comment: The drugs N-Acetylcysteine and Metamizole may falsely depress this assay. Reference Range HDL <40 mg/dL Low HDL Cholesterol HDL >or= 60 mg/dL High HDL Cholesterol LAB L501.6500 0-130 mg/dL Normal LDL 106 LAB L501.6600 5-40 mg/dL Normal VLDL 15 Performed By: #### L500.4050, L500.4100, L503.0105, L506.1000 #### [facility] [address] [employer] [employer], [place], [address] VITAMIN B12 Collected: 11/19/2017 Status: F Source: [place] 7:23 AM [facility] REPOSITORY TYPE CODE TESTS RESULT OUT OF REFERENCE UNITS RANGE LAB L503.0105 211-911 pg/mL High Vitamin B12 1991 Performed By: #### L500.4050, L500.4100, L503.0105, L506.1000 #### [place] [facility] [address] [place], [address] VITAMIN D,25 HYDROXY Collected: 11/19/2017 Status: F Source: [place] 7:23 AM [facility] REPOSITORY TYPE CODE TESTS RESULT OUT OF RANGE REFERENCE UNITS LAB L506.1000 29.95-100.01 ng/mL Normal Vitamin D 61.0 25-OH Result Comment: Vitamin D 25(OH) Status Range Deficiency <20 ng/mL (50nmol/L) Insuffciency 20 - 30 ng/mL (50 - 75 nmol/L) Sufficiency 30 - 100 ng/mL (75 - 250 nmol/L) Toxicity >100 ng/mL (>250 nmol/L) Performed By: #### L500.4050, L500.4100, L503.0105, L506.1000 #### [place] [facility] [address] [place], [address] INTERNAL MEDICINE Observed: 11/12/2017 Status: F Source: [place] OFFICE VISIT 1:12 PM [facility] REPOSITORY [facility] [address] [place] [address] [place] [address] OFFICE VISIT Date of Service: 11/11/17 MR#: [id number] Acct: [id number] Name: MARIANNE GARCIA Rep #: [id number] : 1960 Provider: Jayden Smith MD Age/Sex: 57/F Location: [facility] Status: Signed Intake Vital Signs11/11/17 Height 5 ft 6 in 11/11/17 Weight: 156 lb 11/11/17 Body Mass Index (BMI) 25.2 11/11/17 Blood Pressure 125/84 Intake Visit Reasons: Sore throat Chief Complaint: Follow - up. Is patient in pain?: No Allergies modafinil [From Provigil] Allergy (Verified 11/11/17 17:04) Other Medications Aspirin E.C. [Ecotrin] 81 mg PO DAILY@0800 04/15/15 [History Confirmed 11/11/17] Cholecalciferol (VIT D3) [Vitamin D3] 4,000 unit PO DAILY 04/15/15 [History Confirmed 11/11/17] Clonazepam [Klonopin] 0.25 mg PO TID PRN PRN 04/15/15 [History Confirmed 11/11/17] Cyanocobalamin (Vitamin B-12) [Vitamin B-12] 1,000 mcg PO DAILY 04/15/15 [History Confirmed 11/11/17] Ferrous Sulfate [Iron Supplement] 65 mg PO DAILY 04/15/15 [History Confirmed 11/11/17] Ibuprofen [Motrin] 600 mg PO TID PRN PRN 04/15/15 [History Confirmed 11/11/17] traMADol [Ultram] 100 mg PO Q8H PRN PRN 04/15/15 [History Confirmed 11/11/17] Aspirin/Acetaminophen/Caffeine [Excedrin Extra Strength Caplet] 2 tab PO PRN PRN 07/01/15 [History Confirmed 11/11/17] Baclofen 1 - 2 tab PO QHS PRN 07/01/15 [History Confirmed 11/11/17] buspirone 5 mg tablet 5 mg PO TID tab 04/14/17 [History Confirmed 11/11/17] propranolol 40 mg tablet 40 mg PO Q12H #180 tab 06/24/17 [Rx Confirmed 11/11/17] duloxetine 30 mg capsule,delayed release 30 mg PO BID 07/23/17 [History Confirmed 11/11/17] mupirocin 2 % topical ointment 1 applic TOPICAL BID 10/22/17 [History Confirmed 11/11/17] pramipexole 0.5 mg tablet 0.5 mg PO QHS #60 tab 11/01/17 [Rx Confirmed 11/11/17] fluticasone 50 mcg/actuation nasal spray,suspension 2 spray INTRANASAL DAILY PRN PRN #19.8 g 11/11/17 [Rx Confirmed 11/11/17] mirtazapine 15 mg tablet 15 mg PO QDAY 11/11/17 [History Confirmed 11/11/17] omeprazole 20 mg capsule,delayed release 20 mg PO QDAY #60 cap 11/11/17 [Rx Confirmed 11/11/17] [facility] Medical History Hypertension (Chronic) Transverse myelitis (Chronic) Breast cancer (Chronic) Mitral valve prolapse (Chronic) Vitamin B12 deficiency (Chronic) Vitamin D deficiency (Chronic) GERD (gastroesophageal reflux disease) (Chronic) IBS (irritable bowel syndrome) (Chronic) Depression with anxiety (Chronic) Asthma (Chronic) Seasonal allergies (Chronic) Contact dermatitis (Acute) HPV test positive (Acute) Anorexia (Resolved) Surgical History Anal fissure and fistula (Acute) H/O laparoscopy (Acute) History of colon resection (Acute) History of hysterectomy (Acute) carpal tunnel release surgery (Acute) lumpecomy and lymph node biopsy of the right breast (Acute) right and left foot surgery (Acute) uterine balloon ablation (Acute) Family History Father CVA (cerebral vascular accident) Hypertension Mother Depression Anxiety Asthma COPD (chronic obstructive pulmonary disease) Sister Lupus Grandmother Asthma Social History Smoking Status: Heavy Smoker (>10/day) alcohol intake: current alcohol intake frequency: a few times a week Alcohol type: wine substance use type: does not use what type of physical activity do you participate in: none HPI HPI Chief Complaint: Follow - up. Details: MARIANNE GARCIA, is a 57 F who presents to the office today for follow-up of her chronic medical conditions. During her last visit she was seen for vulvar dermatitis and hydrocortisone was recommended. Symptoms and also to have resolved. Blood pressure is optimal at this visit. She reports compliance with her medications. Recent stress test done due to complaints of chest pain said to be negative. She still has episodes of these chest pains said to occur predominantly at rest/on laying down She reports a history of osteopenia diagnosed during chemotherapy. Currently on vitamin D however does not take calcium supplement. Last bone density scan was at least 2 years ago. She is concerned about postnasal drip and feeling of fullness in her throat. She denies any pain or difficulty swallowing. Symptoms did improve on Mucinex DM. She otherwise feels well. ROS Const Constitutional: No chills, fatigue, fever(s), frequent falls, malaise, weakness, sleep problems or change in appetite Eyes Eyes: No blurry vision, change in vision, double vision, discharge or visual disturbances ENT ENT: Positive for sore throat and post nasal drip; no abnormal hearing, ear pain, ear pressure, tinnitus or dizziness/vertigo Resp Respiratory: No cough, shortness of breath or wheezing Cardio Cardiology: No chest pain at rest, chest pain with exertion, shortness of breath, dyspnea on exertion, generalized swelling, irregular heart rhythm, lightheadedness, orthopnea, fast heart rate or palpitations Gastro GI: No abdominal pain, change in bowel habits, constipation, diarrhea, nausea/dyspepsia or vomiting Genitourinary-Female: No difficulty urinating, burning urination, painful urination, urinary incontinence, urinary frequency, urinary urgency, urinary hesitancy, urinary retention, Frequent nighttime urination/ nocturia, sexual problems, genital lesions, abnormal vaginal bleeding, pelvic pain, vaginal dryness, vaginal odor or Vaginal Itching Musc Musculoskeletal: No joint pain, back pain, joint swelling, limited range of motion, numbness, tingling or muscle weakness Skin Skin: No change in skin color, itching, rash or wounds Breast Breast: No breast lump or breast pain Neuro Neurology: No frequent falls, weakness, abnormal hearing, numbness, tingling, unsteady gait/balance, dizziness, loss of vision, memory loss or visual disturbances Psych Psychiatric: No memory loss, No anxiety, No change in appetite, No depression, No Thoughts of harming yourself/Others Endo Endocrine: No fatigue, heat intolerance, increased thirst/drinking, increased hunger or increased urination Aller/Imm Allergy/Immunologic: No wheezing, itchy eyes or seasonal allergy symptoms Tomas/Lymp Hematologic/Lymphatic: No easy bleeding, easy bruising or enlarged lymph nodes Exam Const General: cooperative, no acute distress, well developed Orientation: alert, awake, oriented x3 [facility] Head: atraumatic, normocephalic Ears: hearing grossly normal bilaterally Resp Effort AND Inspection: normal respiratory effort, able to speak in complete sentences Auscultation: Bilateral: Clear to Auscultation Cardio Rate: regular rate Rhythm: regular rhythm Heart Sounds: S1 normal, S2 normal GI Inspection: normal to inspection Palpation: soft, no hepatosplenomegaly Musc Musculoskeletal: No muscle weakness Neuro General: alert, awake, oriented x3, moves all extremities, CN's II-XI intact bilaterally Extrem General: no clubbing, cyanosis or edema Psych Appearance: grossly normal Mental Status: mental status grossly normal Affect: normal affect Assessment AND Plan 1. Essential hypertension I10 Plan Optimally controlled. Continue current medication and lifestyle modifications. Smoking cessation encouraged. Follow-up with blood work. Orders Orders: 2. Chest pain, atypical R07.89 Plan Said to be more on laying down. Typically resolve spontaneously. Recent stress test done was normal. Omeprazole 20 mg every morning 30 minutes before breakfast. Smoking cessation encouraged. 3. Osteopenia M85.80 Plan Diagnosed during chemotherapy treatment. Currently takes vitamin D however does not take calcium supplement. Repeat bone density scan ordered. Advised to take calcium and vitamin D daily. Vitamin D levels also ordered. 4. Post-nasal drip R09.82 Plan Chronic. Feeling a lumpy sensation in the truth which typically resolves with Mucinex DM. Smoking cessation as above. Flonase as needed. Advised to call with any worsening symptoms. 5. Depression with anxiety F41.8 Plan Chronic. Currently follows up with psychiatry. Concerned about weight loss/increased appetite. Was recently started on Remeron to help with sleep. Advised her to follow-up with her psychiatrist about possibly switching to trazodone. Continue other management. 6. Vitamin B12 deficiency E53.8 Plan Labs ordered. Follow-up with results. This note was generated with [employer] dictation software. It may contain incorrect words, spelling, and punctuation that were not noted in checking the note before signing. Orders Orders: Plan Detail Other Orders Orders: Other Medications New: Changed: Coding Level of Care Code Off vis,est,level 4 Diagnoses Essential hypertension I10 Hypertension type: essential hypertension Chest pain, atypical R07.89 Osteopenia M85.80 Post-nasal drip R09.82 Depression with anxiety F41.8 Vitamin B12 deficiency E53.8 11/12/17 1312 <Electronically signed by Jayden Smith MD> Date Jayden Smith MD Cosigner Signature: Date (if applicable) CC: STRESS REPORT Observed: 10/29/2017 Status: F Source: [place] 2:04 PM [facility] REPOSITORY [facility] Cardiovascular Services [address] [place] [address] MR#: [id number] Acct: [id number] Name: MARIANNE GARCIA Rep #: [id number] : 1960 57 From: John Dobson MD Primary Care: Jayden Smith MD Status: REG CLI Ordering Dr: Sex: F C Stress Test Report Date: 10/29/2017 Procedure: Pharmacologic stress nuclear imaging study Indications: Chest pain Consent: Per the patient Procedure: The patient underwent pharmacologic (Regadenoson) evaluation with a peak heart rate of 100 beats per minute (60 predicted maximal heart rate) and a peak blood pressure of 142/90 mmHg. The baseline ECG demonstrated normal sinus rhythm. The peak pharmacologic ECG demonstrated no obvious ECG changes. There were no cardiac dysrhythmias pretest, during pharmacologic infusion, or recovery. There was no complaint of chest discomfort during pharmacologic infusion or recovery. The examination was discontinued secondary to completion of protocol. Impression: 1. Pharmacologic (Regadenoson) evaluation 2. Peak pharmacologic ECG with no obvious ECG changes. 3. There were no cardiac dysrhythmias pretest, during pharmacologic infusion, or recovery 4. Nuclear images pending Myocardial perfusion imaging study: Technique: The patient was injected with 10.7 millicuries of technetium 99m Cardiolite and subsequently rest SPECT Cardiolite nuclear imaging was obtained in the horizontal long, vertical long, and short axis views. The patient underwent pharmacologic (Regadenoson) evaluation with a peak heart rate of 100 beats per minute (60 % percent predicted maximal heart rate) and a peak blood pressure of 142/90 mmHg. The patient was injected with 32.1 millicuries of technetium 99m Cardiolite and subsequently stress SPECT Cardiolite nuclear imaging was obtained in the horizontal long, vertical long, and short axis views. A gated Cardiolite study at peak stress was obtained. Interpretation: Rest and stress SPECT Cardiolite nuclear imaging status post realignment, normalization, and attenuation correction demonstrate relative uniform tracer uptake and myocardial perfusion appearing within normal limits. There is end systolic thickening and brightening. The gated Cardiolite study demonstrates myocardial thickening and inward wall motion. The reported LVEF is 72 %. Impression: 1. Rest and stress SPECT Cardiolite nuclear imaging demonstrate relative uniform tracer uptake and myocardial perfusion appearing within normal limits. 2. The gated Cardiolite study reports an LVEF of 72 %. This note was generated with [employer] software. It may contain incorrect words, spelling, and punctuation that were not noted in checking the note before signing. 10/29/17 1404 <Electronically signed by John Dobson MD> Date John Dobson MD CC: TODD Sahu; Jayden Smith MD Date Dictated: 10/29/171401 Date Transcribed: 10/29/171401 Uniform Attendant: PM Signed CARDIOLOGY VISIT Observed: 10/22/2017 Status: F Source: [place] REPORT 11:52 AM [facility] REPOSIT[facility] [address] [place] [address] OFFICE VISIT Date of Service: 10/22/17 MR#: [id number] Acct: [id number] Name: MARIANNE GARCIA Rep #: [id number] : 1960 Provider: TODD Sahu Age/Sex: 57/F Location: [facility] [place] Status: Signed [facility] HPI Details: MARIANNE GARCIA, is a 57 F who presents to the office today for a cardiovascular outpatient follow-up. She has a history of mitral valve disease, tricuspid valve disease, hypertension, COPD, tobacco abuse, and sleep apnea. She states smoking since the age of 17 with half to whole pack per day. Pt denies left arm, jaw, or neck discomfort. Her exercise tolerance is stable though she does not follow any special plan. Pt denies symptoms of CHF, near syncopal or syncopal episodes. Pt denies edema or claudication issues. Pt. denies orthopnea, fever, chills, blood in urine, blood in stool, myalgia, or unexplainable fatigue. She states moments of right arm feeling funny. She states this occurs at rest. She states center sharp chest pain below her left breast bone. She denies any worsening SOB, nausea, or diaphoresis during this time. The last time this occurred was once month ago. She states elements of lightheadedness and dizziness with quick position changes. She states leg achiness when going up steps. This will improve in time/rest. She notices SOB when climbing stairs as well that she attributes to her COPD. She states feeling PND once every couple months. Intake Vital Signs10/22/17 Height 5 ft 6 in 10/22/17 Weight: 149 lb 10/22/17 Body Mass Index (BMI) 24.0 10/22/17 Blood Pressure 124/80 Intake Visit Reasons: 1 Y FU Butcher Assistant Required: No Is patient in pain?: No Allergies modafinil [From Provigil] Allergy (Verified 10/22/17 10:32) Other Medications Aspirin E.C. [Ecotrin] 81 mg PO DAILY@0800 04/15/15 [History Confirmed 10/22/17] Cholecalciferol (VIT D3) [Vitamin D3] 4,000 unit PO DAILY 04/15/15 [History Confirmed 10/22/17] Clonazepam [Klonopin] 0.25 mg PO TID PRN PRN 04/15/15 [History Confirmed 10/22/17] Cyanocobalamin (Vitamin B-12) [Vitamin B-12] 1,000 mcg PO DAILY 04/15/15 [History Confirmed 10/22/17] Ferrous Sulfate [Iron Supplement] 65 mg PO DAILY 04/15/15 [History Confirmed 10/22/17] Fluticasone 0.05% [Flonase Nasal Patten] 2 spray NASAL DAILY PRN PRN 04/15/15 [History Confirmed 10/22/17] Ibuprofen [Motrin] 600 mg PO TID PRN PRN 04/15/15 [History Confirmed 10/22/17] traMADol [Ultram] 100 mg PO Q8H PRN PRN 04/15/15 [History Confirmed 10/22/17] Aspirin/Acetaminophen/Caffeine [Excedrin Extra Strength Caplet] 2 tab PO PRN PRN 07/01/15 [History Confirmed 10/22/17] Baclofen 1 - 2 tab PO QHS PRN 07/01/15 [History Confirmed 10/22/17] buspirone 5 mg tablet 5 mg PO TID tab 04/14/17 [History Confirmed 10/22/17] pramipexole 0.5 mg tablet 0.5 mg PO QHS #60 tab 05/10/17 [Rx Confirmed 10/22/17] propranolol 40 mg tablet 40 mg PO Q12H #180 tab 06/24/17 [Rx Confirmed 10/22/17] duloxetine 30 mg capsule,delayed release 30 mg PO BID 07/23/17 [History Confirmed 10/22/17] acyclovir 200 mg capsule 200 mg PO Q4H 10/22/17 [History Confirmed 10/22/17] mupirocin 2 % topical ointment 1 applic TOPICAL BID 10/22/17 [History Confirmed 10/22/17] PFS Medical History Hypertension (Chronic) Transverse myelitis (Chronic) Breast cancer (Chronic) Mitral valve prolapse (Chronic) Vitamin B12 deficiency (Chronic) Vitamin D deficiency (Chronic) GERD (gastroesophageal reflux disease) (Chronic) IBS (irritable bowel syndrome) (Chronic) Depression with anxiety (Chronic) Asthma (Chronic) Seasonal allergies (Chronic) Contact dermatitis (Acute) HPV test positive (Acute) Anorexia (Resolved) Surgical History Anal fissure and fistula (Acute) H/O laparoscopy (Acute) History of colon resection (Acute) History of hysterectomy (Acute) carpal tunnel release surgery (Acute) lumpecomy and lymph node biopsy of the right breast (Acute) right and left foot surgery (Acute) uterine balloon ablation (Acute) Family History Father CVA (cerebral vascular accident) Hypertension Mother Depression Anxiety Asthma COPD (chronic obstructive pulmonary disease) Sister Lupus Grandmother Asthma Social History Smoking Status: Heavy Smoker (>10/day) alcohol intake: current alcohol intake frequency: a few times a week Alcohol type: wine substance use type: does not use what type of physical activity do you participate in: none ROS Const Const: Negative for fatigue, weakness, body ache, fever(s) or chills ENT ENT: Positive for dizziness Cardio Chest Pain: Yes Character: sharp Onset: at rest Location: left chest Palpitations: No Edema: None Muscle aches with walking: Bilateral Resp Respiratory: Positive for SOB with activity and paroxysmal nocturnal dyspnea; negative for SOB at rest or SOB orthopnea\SOB lying down GI GI: Negative nausea, black,tarry stools, bright, red blood in stools or vomiting blood/hematemesis : Negative for hematuria or frequent nighttime urination/ nocturia Musc Musc: Negative for muscle aches/ myalgia Skin Skin: Negative non-healing lesions or rash Neuro Neuro: Positive for dizziness and lightheadedness; negative for weakness, near syncope, syncope or orthostatic symptoms Endo Endo: Negative for fatigue Allergy Allergy/Immunology: Negative for rash Cardiology Exam Const Appearance: cooperative, healthy appearing, comfortable and no acute distress Orientation: alert, awake and oriented x3 Head Head: normal to inspection Ears: hearing grossly normal bilaterally Nose: external nose normal Face and Sinus: face symmetric Mouth: oral mucosae normal Eyes General: appearance normal, both eyes and all related structures Eyelids: eyelids normal Neck Neck: no JVD and normal visual inspection Carotids: normal carotid upstroke Chest Chest inspection: normal inspection of the chest and normal respiratory effort; negative cough Auscultation: Bilateral: Clear to Auscultation Cardio Rate: regular rate Rhythm: regular rhythm Heart sounds: S1 normal and S2 normal; negative rub or gallop GI GI: normal to inspection Neuro General: alert, awake, oriented x3 and CN's II-XI intact bilaterally Skin Skin: no rashes or lesions noted Extremities Pulses: Normal: Right Posterior Tibial Pulse, Left Posterior Tibial Pulse, Right Radial Pulse, Left Radial Pulse Lower Extremity Edema: None: Bilateral Psych Psychological: normal affect Supplemental Info Echocardiogram from April 2015 showed estimated ejection fraction 65%, mild diffuse mitral valve calcification, mitral valve doming/hockey sticking, trivial mitral valve insufficiency, poor coaptation of the tricuspid valve, moderate tricuspid valve insufficiency, trivial pulmonic valve insufficiency, RVSP 20 mmHg, and diastolic dysfunction. Nuclear stress test from May 2013 showed peak EKG with no obvious EKG changes and nuclear images negative for stress-induced myocardial ischemia and previous myocardial injury/infarction. Ejection fraction was reported at 69%. Assessment AND Plan 1. Chest pain, unspecified type R07.9 Plan Patient's recent echocardiogram in April 2015 showed preserved ejection fraction of 65%. Her most recent nuclear stress test in May 2013 was negative for stress-induced myocardial ischemia. Patient symptoms appear atypical. However, given her long-standing history of tobacco abuse and symptoms of left-sided chest pain at times and shortness of breath she will undergo a nuclear stress test for further evaluation. We will wait for the results of this test for further recommendation. Orders Orders: 2. Dyspnea R06.00 Plan This appears chronic. Patient states this has not necessarily worsened. Her most recent echocardiogram showed preserved ejection fraction of 65%. She will undergo a nuclear stress test to evaluate if there is any ischemic component for this. We will wait for the results of this test for further recommendation. 3. Mitral valve prolapse I34.1 Plan Patient's most recent echocardiogram from April 2015 showed mitral valve doming/hockey-stick. Her shortness of breath has remained stable. On physical exam she has a very soft left lower sternal border murmur. At this time she will not undergo further noninvasive testing for monitoring of this. We will continue to monitor this through history, exam, and repeat echocardiogram. 4. Essential hypertension I10 Plan This is a recent diagnosis for the patient. She was evaluated by primary care physician that started her on propanolol. Since starting the medication, her blood pressure has been well controlled. She will continue this medication and we will continue to monitor. 5. Non-rheumatic tricuspid valve insufficiency I36.1 Plan Patient's echocardiogram from April 2015 showed poor coaptation tricuspid valve, moderate tricuspid valve insufficiency, and an RVSP of 20 mmHg. Patient will continue current medications and we will continue to monitor. Plan Detail Other Orders Orders: Additional Comments Thank you for allowing us to participate in the patients plan of care, if you have any questions please do not hesitate to call. This note was generated using a voice recognition system and there may be incorrect words, spelling or punctuation that were not noted when reviewing the office note prior to saving. Follow Up 14 Months (PFM) Coding Level of Care Code Off vis,est,level 3 Diagnoses Chest pain, unspecified type R07.9 Chest pain type: unspecified Dyspnea R06.00 Mitral valve prolapse I34.1 Essential hypertension I10 Hypertension type: essential hypertension Non-rheumatic tricuspid valve insufficiency I36.1 Coding Level of Care Code Off vis,est,level 3 Diagnoses Chest pain, unspecified type R07.9 Chest pain type: unspecified Dyspnea R06.00 Mitral valve prolapse I34.1 Essential hypertension I10 Hypertension type: essential hypertension Non-rheumatic tricuspid valve insufficiency I36.1 10/22/17 1152 <Electronically signed by Sree DIAZ> Date Sree DIAZ Cosigner Signature: Date (if applicable) CC: Jayden Smith MD INTERNAL MEDICINE Observed: 07/23/2017 Status: F Source: [facility] OFFICE VISIT 9:26 AM [facility] [address] [place] [address] [address] [place] [address] OFFICE VISIT Date of Service: 07/23/17 MR#: [id number] Acct: [id number] Name: MARIANNE GARCIA Alexa Rep #: [id number] : 1960 Provider: Jayden Smith MD Age/Sex: 57/F Location: [facility] [place] Status: Signed Intake Vital Signs07/23/17 Height 5 ft 6 in 07/23/17 Weight: 149 lb 07/23/17 Body Mass Index (BMI) 24.0 07/23/17 Blood Pressure 125/86 Intake Visit Reasons: 2 M FU Chief Complaint: BP follow-up Allergies modafinil [From Provigil] Allergy (Verified 07/23/17 08:33) Other Medications Aspirin E.C. [Ecotrin] 81 mg PO DAILY@0800 04/15/15 [History Confirmed 07/23/17] Cholecalciferol (VIT D3) [Vitamin D3] 4,000 unit PO DAILY 04/15/15 [History Confirmed 07/23/17] Clonazepam [Klonopin] 0.25 mg PO TID PRN PRN 04/15/15 [History Confirmed 07/23/17] Cyanocobalamin (Vitamin B-12) [Vitamin B-12] 1,000 mcg PO DAILY 04/15/15 [History Confirmed 07/23/17] Ferrous Sulfate [Iron Supplement] 65 mg PO DAILY 04/15/15 [History Confirmed 07/23/17] Fluticasone 0.05% [Flonase Nasal Patten] 2 spray NASAL DAILY PRN PRN 04/15/15 [History Confirmed 07/23/17] Ibuprofen [Motrin] 600 mg PO TID PRN PRN 04/15/15 [History Confirmed 07/23/17] traMADol [Ultram] 100 mg PO Q8H PRN PRN 04/15/15 [History Confirmed 07/23/17] Aspirin/Acetaminophen/Caffeine [Excedrin Extra Strength Caplet] 2 tab PO PRN PRN 07/01/15 [History Confirmed 07/23/17] Baclofen 1 - 2 tab PO QHS PRN 07/01/15 [History Confirmed 07/23/17] buspirone 5 mg tablet 5 mg PO TID tab 04/14/17 [History Confirmed 07/23/17] pramipexole 0.5 mg tablet 0.5 mg PO QHS #60 tab 05/10/17 [Rx Confirmed 07/23/17] propranolol 40 mg tablet 40 mg PO Q12H #180 tab 06/24/17 [Rx Confirmed 07/23/17] clobetasol 0.05 % topical cream 1 applic TOPICAL QAM AND QPM 07/23/17 [History Confirmed 07/23/17] duloxetine 30 mg capsule,delayed release 30 mg PO BID 07/23/17 [History Confirmed 07/23/17] PFSH Medical History Hypertension (Chronic) Transverse myelitis (Chronic) Breast cancer (Chronic) Mitral valve prolapse (Chronic) Vitamin B12 deficiency (Chronic) Vitamin D deficiency (Chronic) GERD (gastroesophageal reflux disease) (Chronic) IBS (irritable bowel syndrome) (Chronic) Depression with anxiety (Chronic) Asthma (Chronic) Seasonal allergies (Chronic) Contact dermatitis (Acute) HPV test positive (Acute) Anorexia (Resolved) Surgical History Anal fissure and fistula (Acute) H/O laparoscopy (Acute) History of colon resection (Acute) History of hysterectomy (Acute) carpal tunnel release surgery (Acute) lumpecomy and lymph node biopsy of the right breast (Acute) right and left foot surgery (Acute) uterine balloon ablation (Acute) Family History Father CVA (cerebral vascular accident) Hypertension Mother Depression Anxiety Asthma COPD (chronic obstructive pulmonary disease) Sister Lupus Grandmother Asthma Social History Smoking Status: Heavy Smoker (>10/day) alcohol intake: current alcohol intake frequency: a few times a week Alcohol type: wine substance use type: does not use what type of physical activity do you participate in: none HPI HPI Chief Complaint: BP follow-up Details: MARIANNE GARCIA, is a 57yo F who presents to the office today for follow up. She has a history of recurrent vulvar dermatitis and recently has had another episode. She denies any known precipitating factors and has tried to wear hypoallergenic underwear. She denies any vaginal discharge. Blood pressure has remained stable. ROS Const Constitutional: No chills, fatigue, fever(s), frequent falls, malaise, weakness, sleep problems or change in appetite Eyes Eyes: No blurry vision, change in vision, double vision, discharge or visual disturbances ENT ENT: No abnormal hearing, ear pain, ear pressure, tinnitus or dizziness/vertigo Resp Respiratory: No cough, shortness of breath or wheezing Cardio Cardiology: No chest pain at rest, chest pain with exertion, shortness of breath, dyspnea on exertion, generalized swelling, irregular heart rhythm, lightheadedness, orthopnea, fast heart rate or palpitations Gastro GI: Positive for constipation and diarrhea; no abdominal pain, change in bowel habits, nausea/dyspepsia or vomiting Genitourinary-Female: Positive for Vaginal Itching; no difficulty urinating, burning urination, painful urination, urinary incontinence, urinary frequency, urinary urgency, urinary hesitancy, urinary retention, Frequent nighttime urination/ nocturia, sexual problems, genital lesions, abnormal vaginal bleeding, pelvic pain, vaginal dryness or vaginal odor Musc Musculoskeletal: No joint pain, back pain, joint swelling, limited range of motion, muscle weakness, numbness or tingling Skin Skin: No change in skin color, itching, rash or wounds Breast Breast: No breast lump or breast pain Neuro Neurology: No frequent falls, weakness, abnormal hearing, numbness, tingling, unsteady gait/balance, dizziness, loss of vision, memory loss or visual disturbances Psych Psychiatric: No memory loss, Positive for anxiety, No change in appetite, Positive for depression, No Thoughts of harming yourself/Others Endo Endocrine: No fatigue, heat intolerance, increased thirst/drinking, increased hunger or increased urination Aller/Imm Allergy/Immunologic: No wheezing, itchy eyes or seasonal allergy symptoms Tomas/Lymp Hematologic/Lymphatic: No easy bleeding, easy bruising or enlarged lymph nodes Exam Const General: cooperative, no acute distress, well developed Orientation: alert, awake, oriented x3 HENMT Head: atraumatic, normocephalic Ears: hearing grossly normal bilaterally Resp Effort AND Inspection: normal respiratory effort, able to speak in complete sentences Auscultation: Bilateral: Clear to Auscultation Cardio Rate: regular rate Rhythm: regular rhythm Heart Sounds: S1 normal, S2 normal GI Inspection: normal to inspection Palpation: soft, no hepatosplenomegaly Other: Erythemic maculopapular rash around the vulvar area. No vaginal discharge appreciated. Musc Musculoskeletal: No muscle weakness Neuro General: alert, awake, oriented x3, moves all extremities, CN's II-XI intact bilaterally Extrem General: no clubbing, cyanosis or edema Psych Appearance: grossly normal Mental Status: mental status grossly normal Affect: normal affect Assessment AND Plan 1. Vulvar dermatitis N76.89 Plan Patient has a history of recurrent dermatitis of her vulvar area. Most likely contact dermatitis. Advised to allergen identification and exclusion. OTC Hydrocortisone. If not helpful will give 2.5% Hydrocortisone ointment. Follow up in 1 month. 2. Hypertension I10 Plan Optimally controlled. Continue current medication. Continue life style modification. This note was generated with [employer] dictation software. It may contain incorrect words, spelling, and punctuation that were not noted in checking the note before signing. Plan Detail Follow Up 1 Month Coding Level of Care Code Off vis,est,level 3 Diagnoses Vulvar dermatitis N76.89 Hypertension I10 07/23/17 0926 <Electronically signed by Jayden Smith MD> Date Jayden Smith MD Cosigner Signature: Date (if applicable) CC: INTERNAL MEDICINE Observed: 05/24/2017 Status: F Source: [facility] OFFICE VISIT 8:34 AM [facility] [address] [place] [address] OFFICE VISIT Date of Service: 05/21/17 MR#: [id number] Acct: [id number] Name: MARIANNE GARCIA Rep #: [id number] : 1960 Provider: Jayden Smith MD Age/Sex: 57/F Location: [facility] [place] [facility] [place] Status: Signed Intake Vital Signs05/21/17 Height 5 ft 6 in Intake Visit Reasons: 6 wk FU Chief Complaint: BP follow-up Is patient in pain?: No Allergies modafinil [From Provigil] Allergy (Verified 07/01/15 10:34) Other Medications Acyclovir 200 mg PO Q4H PRN PRN 04/15/15 [History Confirmed 03/26/17] Albuterol IH (ProAir) [Proair Hfa] 2 puff INHALATION Q4H PRN PRN 04/15/15 [History Confirmed 03/26/17] Aspirin E.C. [Ecotrin] 81 mg PO DAILY@0800 04/15/15 [History Confirmed 03/26/17] Cholecalciferol (VIT D3) [Vitamin D3] 4,000 unit PO DAILY 04/15/15 [History Confirmed 03/26/17] Clonazepam [Klonopin] 0.25 mg PO TID PRN PRN 04/15/15 [History Confirmed 03/26/17] Cyanocobalamin (Vitamin B-12) [Vitamin B-12] 1,000 mcg PO DAILY 04/15/15 [History Confirmed 03/26/17] Ferrous Sulfate [Iron Supplement] 65 mg PO DAILY 04/15/15 [History Confirmed 03/26/17] Fluticasone 0.05% [Flonase Nasal Patten] 2 spray NASAL DAILY PRN PRN 04/15/15 [History Confirmed 07/01/15] Ibuprofen [Motrin] 600 mg PO TID PRN PRN 04/15/15 [History Confirmed 03/26/17] TraMADol [Ultram] 100 mg PO Q8H PRN PRN 04/15/15 [History Confirmed 03/26/17] Aspirin/Acetaminophen/Caffeine [Excedrin Extra Strength Caplet] 2 tab PO PRN PRN 07/01/15 [History Confirmed 03/26/17] Baclofen 1 - 2 tab PO QHS PRN 07/01/15 [History Confirmed 03/26/17] rqkqe-v-yzswsvusjwree tablet 1 tab PO 6XD PRN 03/26/17 [History Confirmed 03/26/17] calcium carbonate 200 mg calcium (500 mg) chewable tablet 200 mg PO TID tab 03/26/17 [History Confirmed 03/26/17] loratadine 5 mg-pseudoephedrine ER 120 mg tablet,extended release,12hr 1 tab PO Q12H 03/26/17 [History Confirmed 03/26/17] kiqpmsdi-fmcluldnu-jvmkqmpzy 3.5 mg/g-10,000 unit/g-0.5 %topical cream 1 applic TOPICAL QDAY 03/26/17 [History Confirmed 03/26/17] buspirone 5 mg tablet 5 mg PO TID tab 04/14/17 [History Confirmed 04/14/17] pramipexole 0.5 mg tablet 0.5 mg PO QHS #60 tab 05/10/17 [Rx] propranolol 40 mg tablet 40 mg PO Q12H #180 tab 05/21/17 [Rx Confirmed 05/21/17] venlafaxine ER 37.5 mg capsule,extended release 24 hr 75 mg PO DAILY cap 05/21/17 [History Confirmed 05/21/17] PFSH Medical History Mitral valve prolapse (Chronic) Vitamin B12 deficiency (Chronic) Vitamin D deficiency (Chronic) GERD (gastroesophageal reflux disease) (Chronic) IBS (irritable bowel syndrome) (Chronic) Depression with anxiety (Chronic) Asthma (Chronic) Seasonal allergies (Chronic) Contact dermatitis (Acute) HPV test positive (Acute) Anorexia (Resolved) Surgical History Anal fissure and fistula (Acute) H/O laparoscopy (Acute) History of hysterectomy (Acute) carpal tunnel release surgery (Acute) lumpecomy and lymph node biopsy of the right breast (Acute) right and left foot surgery (Acute) uterine balloon ablation (Acute) Family History Father CVA (cerebral vascular accident) Hypertension Mother Depression Anxiety Asthma COPD (chronic obstructive pulmonary disease) Sister Lupus Grandmother Asthma Social History Smoking Status: Heavy Smoker (>10/day) alcohol intake: current alcohol intake frequency: a few times a week Alcohol type: wine substance use type: does not use what type of physical activity do you participate in: none HPI HPI Chief Complaint: BP follow-up Details: MARIANNE GARCIA, is a 57yo F who presents to the office today for follow-up of her blood pressure. She has no acute complaints at this time. She was started on propranolol 40 mg twice daily and reports compliance with her medications. She is also had some adjustments to her antidepressants and has noted reduction in her blood pressure since then. Blood pressure in office today is 118/84 mmHg. She still smokes daily however is making better attempts at watching her sodium. ROS Const Constitutional: No weight change, body ache, chills, fatigue, sleep problems, fever(s), change in appetite, snoring, weakness, frequent falls, headache(s) or excessive sweating Eyes Eyes: No change in vision, eye pain, light sensitivity or blurry vision ENT ENT: No headache(s), abnormal hearing, ear pain, tinnitus, sore throat or neck pain Resp Respiratory: No snoring, cough, shortness of breath or wheezing Cardio Cardiology: No excessive sweating, chest pain at rest, chest pain with exertion, shortness of breath, dyspnea on exertion, palpitations, orthopnea or lightheadedness Gastro GI: No abdominal pain, change in bowel habits, constipation, diarrhea, vomiting, nausea/dyspepsia or cramping Musc Musculoskeletal: No neck pain, abnormal walking, joint pain, back pain, limited range of motion, numbness or tingling Skin Skin: No redness, dry skin, itching, lesions, wounds or rash Neuro Neurology: No weakness, frequent falls, headache(s), abnormal hearing, abnormal walking, numbness, tingling, abnormal speech, dizziness or memory loss Psych Psychiatric: No change in appetite, No memory loss, Positive for anxiety (increased since meds have been adjusted.), Positive for depression, No Thoughts of harming yourself/Others Endo Endocrine: No fatigue, excessive sweating, cold intolerance, increased thirst/drinking, heat intolerance, flushing or increased hunger Aller/Imm Allergy/Immunologic: No wheezing, itchy eyes, hives or seasonal allergy symptoms Tomas/Lymp Hematologic/Lymphatic: No easy bleeding, easy bruising or enlarged lymph nodes Exam Const General: cooperative, no acute distress Orientation: alert, awake, oriented x3 HENMT Head: normal to inspection, normocephalic, atraumatic Ears: hearing grossly normal bilaterally Resp Effort AND Inspection: normal respiratory effort, able to speak in complete sentences Auscultation: Bilateral: Clear to Auscultation Cardio Rate: regular rate Rhythm: regular rhythm Heart Sounds: S1 normal, S2 normal GI Palpation: soft, no hepatosplenomegaly Neuro General: alert, oriented x3, awake, CN's II-XI intact bilaterally, moves all extremities Extrem General: no pedal edema Psych Appearance: grossly normal Affect: normal affect Assessment AND Plan 1. Hypertension I10 Plan Achieving better control. Denies any intolerance with medication. Continue current medication. Continue lifestyle modification including low sodium, exercise, whole grains and low-fat. Keep a blood pressure log with blood pressure readings about twice weekly. Follow-up in 2 months. 2. IBS (irritable bowel syndrome) K58.9 Plan Chronic. Stable. No significant complaints at this time. Will monitor. This note was generated with Opencareation software. It may contain incorrect words, spelling, and punctuation that were not noted in checking the note before signing. Plan Detail Other Medications Refilled: Follow Up 2 Months Coding Level of Care Code Off vis,est,level 3 Diagnoses Hypertension I10 IBS (irritable bowel syndrome) K58.9 05/24/17 0834 <Electronically signed by Jayden Smith MD> Date Jayden Smith MD Cosigner Signature: Date (if applicable) CC: ALLERGIES ALLERGIES DATE TYPE / CODE NAME / CODE REACTION SEVERITY SOURCE 04/06/2018 Drug modafinil/F0 Other Unknown [facility] Allergy/4160 [id number]([facility] 44960(SNOMED ORM) Repository CT) ENCOUNTERS ENCOUNTERS ADMIT/DISCHARGE ACCOUNT ADMITTING ENCOUNTER LOCATION SOURCE NUMBER CLASS 04/20/2018 [id number] Ambulatory [place] 9 [facility] ing:MTLAB Repository 04/06/2018/ [id number] Ambulatory [facility] [place] 9 [place] [place] 01/18/2018/ [id number] Ambulatory B[facility]:B [place] [facility] 1 [facility] Repository 12/21/2017/ [id number] Ambulatory [facility]:B [place] 8 [facility] Repository 11/25/2017 [id number] Ambulatory [place] 2 [facility] ing:OPBD Repository 11/19/2017 [id number] Ambulatory [place] 7 [facility] ing:MTLAB Repository 11/11/2017/ [id number] Ambulatory [facility]MSBuilding:B [place] [facility] 7 [place] Repository 10/29/2017 [id number] [place]ulatory [place] 8 [facility] ing:[facility] Repository 10/29/2017 [id number] Ambulatory BMSBuilding:W [place] 6 [facility] Repository 10/25/2017 [id number] Ambulatory [facility]:B [place] [facility] Repository 10/22/2017/ [id number] Ambulatory [facility]:B [place] [facility] 1 [facility] Repository 08/27/2017 [id number] Ambulatory [facility] [place] 8 [facility] Repository 07/23/2017/ [id number] Ambulatory [facility] [place] 9 [facility] Repository 05/21/2017/ [id number] Ambulatory [facility]:B [place] [facility] 5 [facility] Repository PAYERS PAYERS ENCOUNTER GUARANTOR PAYER SUBSCRIBER SOURCE 04/20/2018 MARIANNE Alexa [id number] Primary MARIANNE L [place] Insurance:[facility] WEISERDOB: [place] MEDICAREPolicy [id number] [facility] [address]Cii: (330) Number: Repository [phone] () [id number] Date:5357-66-43UG [address] [address]CM: 04/20/2018 Secondary NOT GIVENUNK [place] Insurance:SELF PAY [facility] Number: Effective Repository Date:2018-04-20 04/06/2018 MARIANNE L [id number] Primary MAR[place]NE L [place] Insurance:[employer] [employer] WEISERDOB: [address] MEDICAREPolicy [id number] [id number]: (330) Number: Repository [phone] () [id number] Date:9735-71-17CD [address] [place] [address]OP: 04/06/2018 Secondary NOT GIVENUNK [place] Insurance:SELF PAY [facility] Number: Effective Repository Date:2018-04-06 01/18/2018 MARIANNE L [id number] Primary MAR[place]NE L [place] Insurance:HUMANA WEISERDOB: [address] [facility] [id number] [id number]: [phone]) Number: Repository [phone] () [id number] Date:1834-01-99MW [address] [address]KY: 01/18/2018 Secondary NOT GIVENUNK [place] Insurance:SELF PAY [facility] Number: Effective Repository Date:2018-01-18 12/21/2017 MARIANNE L [id number] Primary MARIANNE L [place] Insurance:HUMANA WEISERDOB: [address] MEDICARE [facility] [id number] Hospital [address]Nno: (330) Number: Repository [phone] () [id number] Date:7260-04-94OD [address] [address]HV: 12/21/2017 Secondary NOT GIVENUNK [place] Insurance:SELF PAY [facility] Number: Effective Repository Date:2017-12-21 11/25/2017 MARIANNE L [id number] Primary MARIANNE L [place] Insurance:HUMANA WEISERDOB: [address] MEDICARE [facility] [id number] Hospital [address]Lvr: (330) Number: Repository [phone] () [id number] Date:1026-64-72TB [place] [address]WP: 11/25/2017 Secondary NOT GIVENUNK [place] Insurance:SELF PAY [facility] Number: Effective Repository Date:2017-11-12 11/19/2017 MARIANNE L [id number] Primary MARIANNE L [place] Insurance:HUMANA WEISERDOB: [address] MEDICARE [facility] [id number] Hospital [address]Xlc: (330) Number: Repository [phone] () [id number] Date:8612-72-13RLRUSSE[place] [address]WP: 11/19/2017 Secondary NOT GIVENUNK [place] Insurance:SELF PAY [facility] Number: Effective Repository Date:2017-11-19 11/11/2017 MARIANNE L [id number] Primary MARIANNE L [place] Insurance:HUMANA WEISERDOB: [place] [address] MEDICARE PPOPolicy [id number] Hospital [address]Mta: (330) Number: Repository [phone] () [id number] Date:2353-74-60ZY [address]46[address]WP: 11/11/2017 Secondary NOT GIVENUNK [place] Insurance:SELF PAY [facility] Number: Effective Repository Date:2017-11-11 10/29/2017 MARIANNE L [id number] Primary MARIANNE L [place] Insurance:HUMANA WEISERDOB: [address] MEDICARE [facility] [id number] Hospital [address]Jvg: (330) Number: Repository [phone] () [id number] Date:3276-23-55FN [address] [place] [address]WP: 10/29/2017 Secondary NOT GIVENUNK [place] Insurance:SELF PAY [facility] Number: Effective Repository Date:2017-10-22 10/29/2017 MARIANNE L [id number] Primary MARIANNE L [place] Insurance:HUMANA WEISERDOB: [place] [address], [place] [facility] [id number] [facility] [address]Orj: (330) Number: Repository [phone] () [id number] Date:8505-35-87SF [place] [address]WP: 10/29/2017 Secondary NOT GIVENUNK [place] Insurance:SELF PAY [facility] Number: Effective Repository Date:2017-10-29 10/25/2017 MARIANNE L [id number] Primary MARIANNE L [place] Insurance:HUMANA WEISERDOB: [address] [facility] [id number] [facility] [address]Azh: (330) Number: Repository [phone] () [id number] Date:9740-81-78IM [address]46[address]WP: 10/25/2017 Secondary NOT GIVENUNK [place] Insurance:SELF PAY [facility] Number: Effective Repository Date:2017-03-24 10/22/2017 MARIANNE L [id number] Primary MARIANNE L [place] Insurance:HUMANA WEISERDOB: [address], [place] [facility]ICARE [facility] [id number] Hospital [address]Oro: (330) Number: Repository [phone] () [id number] Date:1141-26-91WN [address] [place] [address]RG: 10/22/2017 Secondary NOT GIVENUNK [place] Insurance:SELF PAY [facility] Number: Effective Repository Date:2017-10-05 08/27/2017 MARIANNE L [id number] Primary MARIANNE L [place] Insurance:HUMANA WEISERDOB: [address] MEDICARE [facility] [id number] Hospital [address]Vyv: (330) Number: Repository [phone] () [id number] Date:4781-03-53VS [address]WP: 08/27/2017 Secondary NOT GIVENUNK [place] Insurance:SELF PAY [facility] Number: Effective Repository Date:2017-07-23 07/23/2017 MARIANNE L [id number] Primary MARIANNE L [place] Insurance:HUMANA WEISERDOB: [address] MEDICARE [facility] [id number] Hospital [address]Wih: (330) Number: Repository [phone] () [id number] Date:4269-26-73TK [address] [place], [place] [id number]: 07/23/2017 Secondary NOT GIVENUNK [place] Insurance:SELF PAY [facility] Number: Effective Repository Date:2017-07-23 05/21/2017 MARIANNE L [id number] Primary MARIANNE L [place] Insurance:HUMANA WEISERDOB: [place] [address] MEDICARE PPOPolicy [id number] Hospital [address]Kju: (330) Number: Repository [phone] () [id number] Date:2409-08-39TO [address] [place] [address]UZ: 05/21/2017 Secondary NOT GIVENUNK [place] Insurance:SELF PAY [facility] Number: Effective Repository Date:2017-04-14
== END ==
PROVIDERS: Family Provider Internal Medicine; PCP Internal Medicine; Referring Provider Nurse Practitioner Family; Visit Provider Nurse Practitioner Family
DX: I10 Essential (primary) hypertension (principal)
CPT/HCPCS: 36415; 80048

== ENCOUNTER → 2018-05-12 10:54 | Outpatient (CLI) | payer MEDICARE, SELFPAY ==
[2018-05-10 15:33] VITALS: BMI 25.4
[2018-05-12 11:53] LABS: Bacteria 0 SEEN /hpf (None Seen); Mucous, Urine 0 SEEN /hpf (<or=2+); Red Blood Cells-Urine 0 SEEN /hpf (0-5)
[2018-05-12 11:57] LABS: Color, Urine Yellow (Yellow); Glucose, Dipstick Normal (Normal); Ketone-Dipstick 5 mg/dl (Negative); Leukocyte Esterase-Dipstick 500 /ul (Negative); Nitrite-Dipstick Negative (Negative); Occult Blood-Urine 250 /ul (Negative); Protein-Dipstick 100 mg/dl (Negative); Urine Bilirubin Dipstick 1 mg/dL (Negative); Urine Clarity Cloudy (Clear); Urine Urobilinogen Normal (Normal)
[2018-05-12 12:03] LABS: Squamous Epithelial Cells - UA 0-5 SEEN /hpf (5-10); White Blood Cells >100 SEEN /hpf (0-5)
== END ==
PROVIDERS: Family Provider Internal Medicine; PCP Internal Medicine; Referring Provider Nurse Practitioner Family; Visit Provider Nurse Practitioner Family
DX: R30.0 Dysuria (principal)
CPT/HCPCS: 81001; 87086; 87088

== ENCOUNTER → 2018-05-20 17:18 | Outpatient (CLI) | payer MEDICARE, SELFPAY ==
[2018-05-20 13:08] VITALS: BMI 25.4
[2018-05-20 17:22] LABS: Red Blood Cells-Urine 0 SEEN /hpf (0-5)
[2018-05-20 17:23] LABS: Bacteria 0 SEEN /hpf (None Seen); Mucous, Urine 0 SEEN /hpf (<or=2+)
[2018-05-20 17:34] LABS: Color, Urine Yellow (Yellow); Glucose, Dipstick Normal (Normal); Ketone-Dipstick Negative (Negative); Leukocyte Esterase-Dipstick 25 /ul (Negative); Nitrite-Dipstick Negative (Negative); Occult Blood-Urine 10 /ul (Negative); Protein-Dipstick 15 mg/dl (Negative); Urine Bilirubin Dipstick Negative (Negative); Urine Clarity Clear (Clear); Urine Urobilinogen Normal (Normal)
[2018-05-20 18:17] LABS: White Blood Cells 0-5 SEEN /hpf (0-5)
[2018-05-20 18:18] LABS: Squamous Epithelial Cells - UA 0-5 SEEN /hpf (5-10)
== END ==
PROVIDERS: Family Provider Internal Medicine; PCP Internal Medicine; Visit Provider Nurse Practitioner Family
DX: N30.00 Acute cystitis without hematuria (principal)
CPT/HCPCS: 81001; 87086; 87088

== ENCOUNTER → 2018-06-06 16:22 | Outpatient (CLI) | payer MEDICARE, SELFPAY ==
[2018-05-20 13:08] VITALS: BMI 25.4
[2018-06-06 18:04] LABS: CRP < 2.90 mg/L (0.0-3.0)
[2018-06-08 20:07] LABS: Endomysial Antibody IgA Negative (Negative)
[2018-06-09 11:03] LABS: Hep C Antibodies 0.2 s/co ratio (0.0-0.9); Immunoglobulin A 45 mg/dL (87-352); t-Transglutaminase IgA <2 U/mL (0-3)
== END ==
PROVIDERS: Family Provider Internal Medicine; PCP Internal Medicine; Referring Provider Internal Medicine Gastroenterology; Visit Provider Internal Medicine Gastroenterology
DX: K58.1 Irritable bowel syndrome with constipation (principal); K58.0 Irritable bowel syndrome with diarrhea; R10.9 Unspecified abdominal pain
CPT/HCPCS: 36415; 82784; 83516; 86140; 86255; 86803

== ENCOUNTER → 2018-06-15 08:17 | Outpatient (CLI) | payer MEDICARE, SELFPAY ==
[2018-05-20 13:08] VITALS: BMI 25.4
== END ==
PROVIDERS: Family Provider Internal Medicine; PCP Internal Medicine; Referring Provider Internal Medicine Gastroenterology; Visit Provider Internal Medicine Gastroenterology
DX: K58.2 Mixed irritable bowel syndrome (principal); R10.9 Unspecified abdominal pain
CPT/HCPCS: 36415

== ENCOUNTER → 2018-08-30 | Outpatient (CLI) | payer MEDICARE, SELFPAY ==
[2018-08-16 08:09] VITALS: BMI 25.4
== END | disposition home or self-care (01) ==
LOC: SL 20:10
PROVIDERS: Family Provider Internal Medicine; PCP Internal Medicine; Visit Provider Internal Medicine
DX: G47.30 Sleep apnea, unspecified (principal)
CPT/HCPCS: 95810

== ENCOUNTER → 2018-09-08 | Outpatient (CLI) | payer MEDICARE, SELFPAY ==
[2018-08-16 08:09] VITALS: BMI 25.4
[2018-09-06 10:09] VITALS: BMI 25.0
--- NOTE | 2018-09-08 08:00 | BI_ITS ---
MAMMOGRAPHY - BILATERAL SCREENING REASON FOR EXAM: Female, 58 years old. Routine annual screening examination. PERTINENT HISTORY: Non-contributory. Prior right lumpectomy and radiation treatment. TECHNIQUE: Digital bilateral breast sheeba (3D mammographic acquisition) in the CC and MLO projections. 2-D mediolateral oblique (MLO) and craniocaudad (CC) views of both breasts were obtained. CAD: Full Field Digital Mammography with Computer Added Detection was performed. COMPARISON: Comparison is made with prior examination dated April 26, 2017 and March 13, 2016. FINDINGS: Breast Composition: The breasts are heterogeneously dense, which may obscure small masses. There are no dominant masses or suspicious calcifications. The patient is status post right lumpectomy with postoperative changes. No new abnormality is seen. No other significant abnormalities are identified. There has been no significant change since the prior study. BI/SCREEN MAMM (CAD) W/SHEEBA BILAT IMPRESSION: Stable bilateral screening mammogram. Yearly follow-up mammogram recommended. (A) ASSESSMENT CATEGORY: BIRADS Category 2: Benign. A letter regarding these results will be sent to the patient by the facility within 30 days. Approximately 10% of breast cancers are not detected by mammography. A normal mammogram should not delay biopsy of a clinically suspicious abnormality. [id number] Electronically Signed: Cale Green, at 9:42 EDT , Service support ,
--- NOTE | 2018-09-08 08:20 | RAD_ITS ---
STUDY: X-RAY - PELVIS AND RIGHT HIP REASON FOR EXAM: Female, 58 years old. Pain TECHNIQUE: 3 views of the pelvis and hip. COMPARISON: Previous pelvic study of 02/08/2014 FINDINGS: There is a non-specific bowel gas pattern. Surgical clips are seen in the mid upper pelvis. Normal bilateral iliac wings, sacroiliac joints and visualized sacrum. Normal bilateral superior and inferior pubic rami. Normal pubic symphysis. Normal bilateral ischial tuberosities. Normal visualized femoral head. Normal acetabulum. Normal hip joint. RAD/HIP, UNI W/ Pelvis 2-3 Views IMPRESSION: Normal x-ray examination of the pelvis and hip. Electronically Signed: Juan Jose Bell MD at 20:27 EDT , Service support ,
== END | disposition home or self-care (01) ==
PROVIDERS: Family Provider Internal Medicine; PCP Internal Medicine; Referring Provider Internal Medicine; Visit Provider Internal Medicine
DX: M25.551 Pain in right hip (principal); Z12.31 Encounter for screening mammogram for malignant neoplasm of breast
CPT/HCPCS: 73502; 77063; 77067

== ENCOUNTER → 2018-11-11 | Outpatient (CLI) | payer MEDICARE, SELFPAY ==
[2018-09-06 10:09] VITALS: BMI 25.0
[2018-11-11 09:35] LABS: ALB/GLOB Ratio 1.3 RATIO (0.9-2.4); AST(SGOT) 14 U/L (15-37); Alanine Aminotransfer ALT/SGPT 17 U/L (13-56); Albumin, Serum 3.9 g/dL (3.2-5.0); Alkaline Phosphatase 74 U/L (45-117); Anion Gap 6 (5-15); BUN 19 mg/dL (7-18); BUN/Creat Ratio 17.1 RATIO (10-20); Calcium,Total 9.1 mg/dL (8.5-10.1); Chloride 106 mmol/L (98-107); Cholesterol 251 mg/dL (200); Creatinine, Serum 1.11 mg/dL (0.55-1.02); EST Glomerular Filtration Rate 54 mL/min (>60); Est Glom Filt Rate - Afr Amer 65 mL/min (>60); Globulin 3.1 g/dL (2.2-4.2); Glucose 92 mg/dL (74-106); High Density Lipoprotein 70 mg/dL; Potassium 4.2 mmol/L (3.5-5.1); Sodium Level 140 mmol/L (136-145); Triglycerides 128 mg/dL; Very Low Density Lipoprotein 26 mg/dL (5-40)
== END | disposition home or self-care (01) ==
LOC: LAB 07:58
PROVIDERS: Family Provider Internal Medicine; PCP Internal Medicine; Referring Provider Internal Medicine; Visit Provider Internal Medicine
DX: R07.89 Other chest pain (principal); I10 Essential (primary) hypertension
CPT/HCPCS: 36415; 80053; 80061

== ENCOUNTER → 2018-12-22 10:54 | Outpatient (CLI) | payer MEDICARE, SELFPAY ==
[2018-11-28 13:45] VITALS: BMI 25.1
--- NOTE | 2018-12-22 10:57 | ECHOD_ITS ---
Version 2 Reason For Study: MURMUR Procedure This was a 2D Doppler, Color Flow transthoracic echocardiogram. Myocardial strain analysis was performed in this exam to aid in the assessment of cardiac function. The exam was of adequate technical quality. Exam performed in department. Left Ventricle Normal LV size. Left ventricular systolic function is normal. The estimated ejection fraction is 60 %. The global longitudinal strain = -23 % (normal). Diastolic function is indeterminate. No regional wall motion abnormalities noted. Right Ventricle Normal RV size. Normal systolic function. Atria The left atrium is mildly enlarged. Normal right atrium. No doppler evidence for ASD. Mitral Valve There is no mitral annular calcification. Mild focal mitral valve calcification of the anterior leaflet. Mitral valve doming/Hockey Sticking. Mild-Moderate (1-2+) mitral valve insufficiency. Tricuspid Valve Poor coaptation of the tricuspid valve. Moderate (2+) tricuspid valve insufficiency. Right ventricular systolic pressure estimated to be 31 mmHg. Aortic Valve Trisinus/trileaflet aortic valve. Normal aortic valve. Pulmonic Valve The pulmonic valve is not well visualized. Great Vessels Normal sized aortic root. Pericardium/Pleural No pericardial effusion. MMode/2D Measurements & Calculations LVIDd: 4.6 cm IVSd: 0.64 cm Ao root diam: 3.2 cm LVIDs: 3.0 cm LVPWd: 0.71 cm RVDd: 2.5 cm FS: 35.4 % LAV(MOD-bp): 54.6 ml LA A4 area: 19.0 cm2 LA dimension(2D): 3.4 cm LAV(MOD-bp) Indexed: 32.1 ml/m2 LAV(MOD-sp2): 47.5 ml LAV(MOD-sp4): 55.8 ml RA A4 area: 13.8 cm2 Time Measurements MV dec time: 0.20 sec Doppler Measurements & Calculations MV E max denny: 100.5 cm/sec Lat Peak E' Denny: 3.0 cm/sec Med Peak E' Denny: 9.9 cm/sec MV A max denny: 48.0 cm/sec E/E' lat: 33.1 E/E' med: 10.1 MV E/A: 2.1 PA V2 max: 77.8 cm/sec TR max denny: 263.6 cm/sec TR max P.8 mmHg Interpretation Summary Left ventricular systolic function is normal. The estimated ejection fraction is 60 %. The global longitudinal strain = -23 % (normal). The left atrium is mildly enlarged. Mild focal mitral valve calcification of the anterior leaflet. Mitral valve doming/Hockey Sticking Mild-Moderate (1-2+) mitral valve insufficiency. Poor coaptation of the tricuspid valve. Moderate (2+) tricuspid valve insufficiency. Right ventricular systolic pressure estimated to be 31 mmHg. Diastolic function is indeterminate. Ordering Physician: John Dobson Referring Physician: Jayden Smith Performed By: Prabha Rubalcava, JUDYCS, RVT
== END ==
PROVIDERS: Family Provider Internal Medicine; PCP Internal Medicine; Referring Provider Internal Medicine Cardiovascular Disease; Visit Provider Internal Medicine Cardiovascular Disease
DX: I38 Endocarditis, valve unspecified (principal)
CPT/HCPCS: 93306

== ENCOUNTER → 2019-01-16 08:47 | Outpatient (CLI) | payer MEDICARE, SELFPAY ==
[2018-11-28 13:45] VITALS: BMI 25.1
[2019-01-16 10:25] LABS: AST(SGOT) 18 U/L (15-37); Alanine Aminotransfer ALT/SGPT 18 U/L (13-56); Albumin, Serum 3.8 g/dL (3.2-5.0); Alkaline Phosphatase 78 U/L (45-117); Bilirubin, Direct 0.11 mg/dL (0.00-0.30); Cholesterol 156 mg/dL (200); Globulin 3.1 g/dL (2.2-4.2); High Density Lipoprotein 72 mg/dL; Protein, Total 6.9 g/dL (6.4-8.2); Triglycerides 82 mg/dL; Very Low Density Lipoprotein 16 mg/dL (5-40)
== END ==
PROVIDERS: Family Provider Internal Medicine; PCP Internal Medicine; Referring Provider Internal Medicine Cardiovascular Disease; Visit Provider Internal Medicine Cardiovascular Disease
DX: E78.00 Pure hypercholesterolemia, unspecified (principal)
CPT/HCPCS: 36415; 80061; 80076

== ENCOUNTER → 2019-11-27 09:17 | Outpatient (CLI) | payer MEDICARE, SELFPAY ==
[2019-11-27 08:41] VITALS: BMI 25.0
[2019-11-27 10:42] LABS: AST(SGOT) 20 U/L (15-37); Alanine Aminotransfer ALT/SGPT 20 U/L (13-56); Alkaline Phosphatase 92 U/L (45-117); Bilirubin, Direct 0.11 mg/dL (0.00-0.30); Cholesterol 195 mg/dL (200); Globulin 3.4 g/dL (2.2-4.2); High Density Lipoprotein 81 mg/dL; Protein, Total 7.4 g/dL (6.4-8.2); Triglycerides 99 mg/dL; Very Low Density Lipoprotein 20 mg/dL (5-40)
== END ==
PROVIDERS: PCP Internal Medicine; Referring Provider Internal Medicine Cardiovascular Disease; Visit Provider Internal Medicine Cardiovascular Disease
DX: E78.00 Pure hypercholesterolemia, unspecified (principal); I10 Essential (primary) hypertension; I05.1 Rheumatic mitral insufficiency; I07.1 Rheumatic tricuspid insufficiency
CPT/HCPCS: 36415; 80061; 80076

== ENCOUNTER → 2019-12-12 09:40 | Outpatient (CLI) | payer MEDICARE, SELFPAY ==
[2019-11-27 08:41] VITALS: BMI 25.0
--- NOTE | 2019-12-12 09:43 | ECHOCS_ITS ---
Reason For Study: Murmur Procedure This was a 2D Doppler, Color Flow transthoracic echocardiogram. The study was technically difficult. Contrast injection was performed. Exam performed in department. Left Ventricle Normal LV size. Left ventricular systolic function is normal. The estimated ejection fraction is 60 %. No evidence for diastolic dysfunction. No regional wall motion abnormalities noted. Right Ventricle Normal RV size. Normal systolic function. Atria Normal left atrium. Normal right atrium. No doppler evidence for ASD. Bubble contrast study negative for right to left interatrial shunt. Mitral Valve There is no mitral annular calcification. Mild focal mitral valve calcification of the anterior leaflet. Mild-Moderate (1-2+) mitral valve insufficiency. Tricuspid Valve Normal tricuspid valve. Mild to moderate (1-2+) tricuspid valve insufficiency. Right ventricular systolic pressure estimated to be 27 mmHg. Aortic Valve Trisinus/trileaflet aortic valve. Mild focal aortic valve calcification. Pulmonic Valve The pulmonic valve is not well visualized. Trivial pulmonic valve insufficiency. Great Vessels The aortic root is not well visualized. Pericardium/Pleural No pericardial effusion. Medication 22 gauge I.V. with prn adaptor inserted into right arm. Diluted definity 2ml given slow IV push to enhance endocardial definition. Performed a rapid injection of agitated mix of 9 cc saline and 1cc air to assess for atrial septal defect. MMode/2D Measurements & Calculations LVIDd: 4.2 cm IVSd: 0.97 cm LA dimension: 3.6 cm LVIDs: 3.0 cm LVPWd: 0.87 cm FS: 28.8 % LAV(MOD-bp): 44.6 ml LA A4 area: 18.0 cm2 LAV(MOD-bp) Indexed: 25.5 ml/m2 LAV(MOD-sp2): 32.1 ml LAV(MOD-sp4): 47.2 ml Time Measurements MV dec time: 0.23 sec Doppler Measurements & Calculations MV E max denny: 67.4 cm/sec Lat Peak E' Denny: 8.3 cm/sec Med Peak E' Denny: 7.7 cm/sec MV A max denny: 61.2 cm/sec E/E' lat: 8.1 E/E' med: 8.7 MV E/A: 1.1 MV V2 max: 68.5 cm/sec MV P1/2t max denny: 69.6 cm/sec Ao V2 max: 96.6 cm/sec MV max P.9 mmHg MV P1/2t: 81.7 msec Ao max P.7 mmHg MV V2 mean: 38.5 cm/sec MV dec slope: 249.2 cm/sec2 MV mean P.70 mmHg MV V2 VTI: 19.4 cm MVA(P1/2t): 2.7 cm2 LV V1 max: 77.0 cm/sec PA V2 max: 88.6 cm/sec TR max denny: 245.4 cm/sec LV V1 max P.4 mmHg TR max P.1 mmHg Interpretation Summary The study was technically difficult. Contrast injection was performed. Left ventricular systolic function is normal. The estimated ejection fraction is 60 %. Mild focal mitral valve calcification of the anterior leaflet. Mild-Moderate (1-2+) mitral valve insufficiency. Mild to moderate (1-2+) tricuspid valve insufficiency. Mild focal aortic valve calcification. Trivial pulmonic valve insufficiency. Right ventricular systolic pressure estimated to be 27 mmHg. No evidence for diastolic dysfunction. Ordering Physician: John Dobson Referring Physician: Jayden Smith Performed By: Brando Love RCS
== END ==
PROVIDERS: PCP Internal Medicine; Referring Provider Internal Medicine Cardiovascular Disease; Visit Provider Internal Medicine Cardiovascular Disease
DX: I05.1 Rheumatic mitral insufficiency (principal); R01.1 Cardiac murmur, unspecified
CPT/HCPCS: 93306; Q9957; A4216; C8929

== ENCOUNTER → 2020-02-16 13:51 | Outpatient (CLI) | payer MEDICARE, SELFPAY ==
[2020-02-16 13:07] VITALS: BMI 24.3
[2020-02-16 14:15] LABS: Color, Urine Yellow (Yellow); Glucose, Dipstick Normal (Normal); Ketone-Dipstick 15 mg/dl (Negative); Leukocyte Esterase-Dipstick 500 /ul (Negative); Nitrite-Dipstick Negative (Negative); Occult Blood-Urine 50 /ul (Negative); Protein-Dipstick 30 mg/dl (Negative); Specific Gravity, Urine 1.025 (1.002-1.030); Urine Bilirubin Dipstick 1 mg/dL (Negative); Urine Clarity Clear (Clear); Urine Urobilinogen Normal (Normal)
== END ==
PROVIDERS: PCP Internal Medicine; Visit Provider Nurse Practitioner Family
DX: N30.00 Acute cystitis without hematuria (principal)
CPT/HCPCS: 81002

== ENCOUNTER → 2020-02-21 15:34 | Outpatient (CLI) | payer MEDICARE, SELFPAY ==
[2020-02-16 13:07] VITALS: BMI 24.3
[2020-02-21 15:57] LABS: Bacteria 0 SEEN /hpf (None Seen); Mucous, Urine 0 SEEN /hpf (<or=2+); Red Blood Cells-Urine 0 SEEN /hpf (0-5); Squamous Epithelial Cells - UA 0 SEEN /hpf (5-10); White Blood Cells 0 SEEN /hpf (0-5)
[2020-02-21 16:06] LABS: Color, Urine Yellow (Yellow); Glucose, Dipstick Normal (Normal); Ketone-Dipstick 5 mg/dl (Negative); Leukocyte Esterase-Dipstick 25 /ul (Negative); Nitrite-Dipstick Negative (Negative); Occult Blood-Urine Negative /ul (Negative); Protein-Dipstick 15 mg/dl (Negative); Urine Bilirubin Dipstick Negative (Negative); Urine Clarity Clear (Clear); Urine Urobilinogen Normal (Normal)
== END ==
PROVIDERS: PCP Internal Medicine; Visit Provider Nurse Practitioner Family
DX: N30.00 Acute cystitis without hematuria (principal)
CPT/HCPCS: 81001; 87086; 87088

== ENCOUNTER → 2020-03-12 09:23 | Outpatient (CLI) | payer MEDICARE, SELFPAY ==
[2020-03-12 13:29] LABS: Magnesium 2.6 mg/dL (1.6-2.6); T4 Free Direct 0.88 ng/dL (0.76-1.46); Thyroid Stim Hormone (TSH) 2.32 uIU/mL (0.358-3.74)
[2020-03-12 14:33] LABS: Absolute Neutrophil Count 3.6 X10^3/uL (2.0-7.7); Basophil# 0.07 X10^3/uL; Basophil% 1.3 % (0-1); Eosinophils% 1.8 % (0-5); Hematocrit 43.4 % (37-47); Hemoglobin 13.1 g/dL (12.0-15.0); Lymphocyte % 26.9 % (19-41); Mean Corp Hgb Conc 30.2 g/dL (32-36); Mean Corpuscular Volume 106.1 fL (81-99); Mean Platelet Vol. 9.4 fl (6.2-12.0); Monocyte# 0.26 X10^3/uL; Monocyte% 4.7 % (0-10); NRBC Flagged by Analyzer 0 % (0-5); Neutrophil # 3.63 X10^3/uL (2.7-7.7); Neutrophil % 65.1 % (47-70); Platelet Count 528 K/mm3 (150-450); RBC Distribution Width CV 13.2 % (11.6-14.6); RBC Distribution Width SD 51.8 fl (35.1-43.9); Red Blood Count 4.09 M/mm3 (4.2-5.4); White Blood Count 5.6 K/mm3 (4.4-11.0)
[2020-03-12 14:41] LABS: ALB/GLOB Ratio 0.9 RATIO (0.9-2.4); AST(SGOT) 14 U/L (15-37); Alanine Aminotransfer ALT/SGPT 19 U/L (13-56); Albumin, Serum 3.7 g/dL (3.2-5.0); Alkaline Phosphatase 101 U/L (45-117); Anion Gap 6 (5-15); BUN 19 mg/dL (7-18); Calcium,Total 9.6 mg/dL (8.5-10.1); Chloride 107 mmol/L (98-107); EST Glomerular Filtration Rate 60 mL/min (>60); Est Glom Filt Rate - Afr Amer 73 mL/min (>60); Globulin 4.3 g/dL (2.2-4.2); Glucose 91 mg/dL (74-106); Potassium 4.7 mmol/L (3.5-5.1); Sodium Level 141 mmol/L (136-145)
[2020-03-13 11:37] LABS: Ferritin 707 ng/mL (8-252); Iron 99 ug/dL (50-170); Iron Binding Capacity,Total 275 ug/dL (250-450)
== END ==
PROVIDERS: PCP Internal Medicine; Referring Provider Internal Medicine; Visit Provider Internal Medicine
DX: R25.1 Tremor, unspecified (principal); D47.3 Essential (hemorrhagic) thrombocythemia
CPT/HCPCS: 36415; 80053; 82728; 83540; 83550; 83735; 84439; 84443; 85025

== ENCOUNTER → 2020-08-27 14:20 | Outpatient (CLI) | payer MEDICARE, SELFPAY ==
[2020-08-05 09:25] VITALS: BMI 23.4
[2020-08-27 13:54] VITALS: BMI 22.6
--- NOTE | 2020-08-27 14:22 | CT_ITS ---
STUDY: LOW DOSE CT LUNG CANCER SCREENING REASON FOR EXAM: Female, 60 years old. Lung cancer screening -- 42 pack year history; current smoker; asymptomatic RADIATION DOSAGE (If Supplied By Facility): CTDIvol = ( 2.01 ) mGy, DLP = ( 76.5 ) mGycm TECHNIQUE: No contrast was administered. Low dose technique was utilized (average mAS-38 and kVp 120). 1.25 mm axial source images with a slice interval of 1.25-mm were reconstructed in lung windows. 2.5 mm axial source images with a slice interval of 2.5-mm were reconstructed in lung windows. 5.0 mm axial source images with a slice interval of 5.0-mm were reconstructed in soft tissue windows. Nodule measured using lung windows on PACS and/or independent workstation with automated measurement of minimum and maximum diameter. Nodule measurement reported as average diameter rounded to the nearest whole number. Growth is defined as an increase ins size of greater than 1.5 mm. COMPARISON: Comparison is made with prior study dated 05/14/2015. NODULES: No suspicious nodule is seen. Emphysema: Hyperinflation. Mild degree of emphysematous changes. Minimal linear scarring along the medial aspect of the right middle lobe as well as in the posterior aspect of the left lower lobe. Small benign granuloma in the left upper lobe. Aorta: Unremarkable. Coronary arteries: Unremarkable. Heart: Unremarkable Pulmonary artery: Unremarkable Mediastinal nodes: Unremarkable Other chest and abdominal findings: Stable small cyst in the upper aspect of the right lobe of the liver. CT/Low Dose CT Lung Screening IMPRESSION: Lung-RADS category 2 - Continue annual screening with LDCT in 12 months. IMPORTANT NOTES FOR USE: ACR Lung-RADS Version 1.1 Assessment Categories Release Date: 2018 Category: Coded 0-4 bases on nodule(s) with highest degree of suspicion. Negative screen is defined as categories 1 and 2; a positive screen is defined as categories 3 and 4. Category 3 and 4A nodules that are unchanged on interval CT should be coded as category 2, and individuals returned to screening in 12 months. Category 4X: Category 3 or 4 nodules with additional imaging findings that increase the suspicion of lung cancer, such as spiculation, GGN that doubles in size in 1 year, enlarged lymph notes, etc. Category Modifiers: S (significant finding unrelated to lung cancer) Electronically Signed: Cale Green MD at 14:51 EDT , Service support ,
== END ==
PROVIDERS: PCP Internal Medicine; Referring Provider Nurse Practitioner Family; Visit Provider Nurse Practitioner Family
DX: Z12.2 Encounter for screening for malignant neoplasm of respiratory organs (principal); F17.210 Nicotine dependence, cigarettes, uncomplicated
CPT/HCPCS: 71271

== ENCOUNTER → 2020-08-28 11:19 | Outpatient (CLI) | payer MEDICARE, SELFPAY ==
[2020-08-05 09:25] VITALS: BMI 23.4
[2020-08-27 13:54] VITALS: BMI 22.6
--- NOTE | 2020-08-28 11:22 | BI_ITS ---
MAMMOGRAPHY - BILATERAL SCREENING REASON FOR EXAM: Female, 60 years old. Routine annual screening examination. PERTINENT HISTORY: Personal history of breast cancer. Prior right lumpectomy with radiation treatment. TECHNIQUE: Digital bilateral breast sheeba (3D mammographic acquisition) in the CC and MLO projections. 2-D mediolateral oblique (MLO) and craniocaudad (CC) views of both breasts were obtained. CAD: Full Field Digital Mammography with Computer Added Detection was performed. COMPARISON: Comparison is made with prior examination dated 09/08/2018 and 04/26/2017. FINDINGS: Breast Composition: The breasts are heterogeneously dense, which may obscure small masses. There are no dominant masses or suspicious calcifications. The patient is status post right lumpectomy with stable postoperative changes in the inferior medial aspect of the breast with overlying skin thickening. No other significant abnormalities are identified. There has been no significant change since the prior study. BI/SCRN MAMM (CAD)W/SHEEBA BILAT IMPRESSION: Stable bilateral screening mammogram. Yearly follow-up mammogram recommended. (A) ASSESSMENT CATEGORY: BIRADS Category 2: Benign. A letter regarding these results will be sent to the patient by the facility within 30 days. Approximately 10% of breast cancers are not detected by mammography. A normal mammogram should not delay biopsy of a clinically suspicious abnormality. [id number] Electronically Signed: Cale Green MD at 12:38 EDT , Service support ,
--- NOTE | 2020-08-28 11:29 | BD_ITS ---
STUDY: DUAL ENERGY X-RAY ABSORPTIOMETRY / DXA REASON FOR EXAM: Female, 60 years old. Screening -- POSTMENOPAUSAL TECHNIQUE: Bone Mineral Density (BMD) measurements of lumbar spine and bilateral hips were obtained. COMPARISON: Comparison is made with prior study dated 11/25/2017. FINDINGS: Lumbar Spine (L1-L4): g/cm2 (0.968) / T-score (-1.8) / Z-score (-0.6) Findings are suggestive of osteopenia with a moderate fracture risk. Left Femur Total: g/cm2 (0.910) / T-score (-0.8) / Z-score (0.1) Left Femoral Neck: g/cm2 (0.831) / T-score (-1.5) / Z-score (-0.3) Right Femur Total: g/cm2 (0.870) / T-score (-1.1) / Z-score (-0.2) Right Femoral Neck: g/cm2 (0.825) / T-score (-1.5) / Z-score (-0.3) The T-Scores on the most recent prior examination were: Lumbar Spine (L1-L4): There has been worsening of bone density since the previous examination. Left Femur Total: which represents a worsening of 3.5%. Right Femur Total: which represents a worsening of 4.5%. BD/Dexa Bone Density Study IMPRESSION: The patient is considered osteopenic as outlined below according to World Nathan Organization (WHO) criteria with a moderate fracture risk. There has been worsening of bone density since the previous examination. Reference Information: The T-score is the number of standard deviations above or below the standard which is normal for young adults at their peak bone mineral density. The World Health Organization (WHO) interprets the T-scores as follows: Above -1 Normal bone density Between -1 and -2.5 Osteopenia Equal to / or below -2.5 Osteoporosis As a practical clinical guideline, osteopenia may be graded as follows: Mild -1 through -1.5 Moderate -1.6 through -2.0 Severe -2.1 through -2.4 The Z-score is the number of standard deviations above or below age-matched controls. A Z-score of less than -1.5 would be considered abnormal. References: 1. NIH Osteoporosis and Related Bone Diseases www osteo.org 2. International Society for Clinical Densitometry www iscd.org 3. National Osteoporosis Foundation www nof.org Electronically Signed: Cale Green MD at 15:34 EDT , Service support ,
== END ==
PROVIDERS: PCP Internal Medicine; Referring Provider Internal Medicine; Visit Provider Internal Medicine
DX: Z12.31 Encounter for screening mammogram for malignant neoplasm of breast (principal); Z78.0 Asymptomatic menopausal state
CPT/HCPCS: 77063; 77067; 77080

== ENCOUNTER → 2020-09-04 08:28 | Outpatient (CLI) | payer MEDICARE, SELFPAY ==
[2020-08-05 09:25] VITALS: BMI 23.4
[2020-08-27 13:54] VITALS: BMI 22.6
[2020-09-04 09:19] LABS: Absolute Lymphocyte Count 1.73 X10^3/uL (0.83-4.51); Absolute Neutrophil Count 4.9 X10^3/uL (2.0-7.7); Basophil# 0.08 X10^3/uL; Basophil% 1.1 % (0-1); Eosinophil# 0.13 X10^3/uL; Eosinophils% 1.8 % (0-5); Hematocrit 45.5 % (37-47); Hemoglobin 14.8 g/dL (12.0-15.0); Lymphocyte # 1.73 X10^3/ul (0.83-4.51); Lymphocyte % 24.1 % (19-41); Mean Corp Hgb Conc 32.5 g/dL (32-36); Mean Corpuscular Hgb 33.3 pg (27.0-32.0); Mean Corpuscular Volume 102.2 fL (81-99); Mean Platelet Vol. 9.5 fl (6.2-12.0); Monocyte# 0.31 X10^3/uL; Monocyte% 4.3 % (0-10); NRBC Flagged by Analyzer 0 % (0-5); Neutrophil % 68.3 % (47-70); Platelet Count 397 K/mm3 (150-450); RBC Distribution Width CV 12.6 % (11.6-14.6); Red Blood Count 4.45 M/mm3 (4.2-5.4); White Blood Count 7.2 K/mm3 (4.4-11.0)
[2020-09-04 09:56] LABS: Bilirubin, Direct 0.08 mg/dL (0.00-0.30); Cholesterol 181 mg/dL (200); High Density Lipoprotein 74 mg/dL; Thyroid Stim Hormone (TSH) 2.64 uIU/mL (0.358-3.74); Triglycerides 134 mg/dL; Very Low Density Lipoprotein 27 mg/dL (5-40)
[2020-09-04 10:05] LABS: ALB/GLOB Ratio 1.2 RATIO (0.9-2.4); AST(SGOT) 14 U/L (15-37); Alanine Aminotransfer ALT/SGPT 15 U/L (13-56); Albumin, Serum 4.2 g/dL (3.2-5.0); Alkaline Phosphatase 80 U/L (45-117); Anion Gap 2 (5-15); BUN 17 mg/dL (7-18); BUN/Creat Ratio 14.3 RATIO (10-20); Calcium,Total 9.6 mg/dL (8.5-10.1); Chloride 106 mmol/L (98-107); Creatinine, Serum 1.19 mg/dL (0.55-1.02); EST Glomerular Filtration Rate 49 mL/min (>60); Est Glom Filt Rate - Afr Amer 60 mL/min (>60); Globulin 3.4 g/dL (2.2-4.2); Glucose 102 mg/dL (74-106); Protein, Total 7.6 g/dL (6.4-8.2); Sodium Level 138 mmol/L (136-145)
== END ==
PROVIDERS: Internal Medicine Cardiovascular Disease; PCP Internal Medicine; Referring Provider Nurse Practitioner Family; Visit Provider Nurse Practitioner Family
DX: Z79.899 Other long term (current) drug therapy (principal); E78.00 Pure hypercholesterolemia, unspecified; I10 Essential (primary) hypertension; M85.80 Other specified disorders of bone density and structure, unspecified site
CPT/HCPCS: 36415; 80053; 80061; 80178; 82248; 84443; 85025

== ENCOUNTER 2021-08-11 11:16 | Day surgery (SDC) | payer MEDICARE, SELFPAY ==
--- NOTE | 2021-08-05 10:49 | EKG12_ITS ---
Test Reason : PREOP Blood Pressure : / mmHG Vent. Rate : 060 BPM Atrial Rate : 060 BPM P-R Int : 130 ms QRS Dur : 090 ms QT Int : 426 ms P-R-T Axes : 078 032 033 degrees QTc Int : 426 ms Normal sinus rhythm Normal ECG Confirmed by EDWARD ANDERSON, IVETTE ([id number]), editorial writer OKSANA MORALES ([id number]) on 08/06/2021 9:20:16 AM Referred By: Alejandro Serra Confirmed By:IVETTE LEON MD
[2021-08-05 12:02] LABS: Absolute Lymphocyte Count 1.81 X10^3/uL (0.83-4.51); Absolute Neutrophil Count 3.1 X10^3/uL (2.0-7.7); Basophil# 0.07 X10^3/uL; Basophil% 1.3 % (0-1); Eosinophil# 0.11 X10^3/uL; Hematocrit 42.6 % (37-47); Hemoglobin 13.7 g/dL (12.0-15.0); Lymphocyte # 1.81 X10^3/ul (0.83-4.51); Lymphocyte % 33.2 % (19-41); Mean Corp Hgb Conc 32.2 g/dL (32-36); Mean Corpuscular Hgb 33.2 pg (27.0-32.0); Mean Corpuscular Volume 103.1 fL (81-99); Mean Platelet Vol. 9.8 fl (6.2-12.0); Monocyte# 0.34 X10^3/uL; Monocyte% 6.2 % (0-10); NRBC Flagged by Analyzer 0 % (0-5); Neutrophil # 3.11 X10^3/uL (2.7-7.7); Neutrophil % 57.1 % (47-70); Platelet Count 258 K/mm3 (150-450); RBC Distribution Width CV 12.4 % (11.6-14.6); RBC Distribution Width SD 47.3 fl (35.1-43.9); Red Blood Count 4.13 M/mm3 (4.2-5.4); White Blood Count 5.5 K/mm3 (4.4-11.0)
[2021-08-05 12:24] LABS: Anion Gap 6 (5-15); BUN 25 mg/dL (7-18); BUN/Creat Ratio 23.6 RATIO (10-20); Chloride 105 mmol/L (98-107); Creatinine, Serum 1.06 mg/dL (0.55-1.02); EST Glomerular Filtration Rate 56 mL/min (>60); Est Glom Filt Rate - Afr Amer 68 mL/min (>60); Glucose 94 mg/dL (74-106); Sodium Level 141 mmol/L (136-145)
[2021-08-11] VITALS (7 sets, daily range): BP systolic 123–145; BP diastolic 66–90; PULSE 59–68; RESP 16; TEMP 36.3–37; O2SAT 96–100; BMI 23.1
[2021-08-11] MEDS: Lactated Ringers 1,000 ML 15 ML IV (12:18)
[2021-08-11] MEDS: Cefazolin 2 GM in 0.9% Normal Saline 100 ML IV (13:48)
--- NOTE | 2021-08-11 14:16 | OP.PCM_ITS ---
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 Alejandro Serra Bread Distributor: Brooke Murrieta Pa-C Anesthesia: General Anesthesiologist: Dr. Wang / PRINCE Complications: None EBL: 10 cc Special medications: Ancef 2gm IV Indications for surgery patient had pain numbness and tingling in the small and ring finger consistent with cubital tunnel syndrome. Nerve conduction test to verify the diagnosis. Patient did wish to proceed with surgical invention due to failing conservative measures Findings: Patient had compression of the median nerve at the elbow. After releasing the nerve completely there was no evident subluxation of the nerve over the medial epicondyle. Complete release was felt to be performed. Need for anterior transposition and stabilization did not seem to exist. Bread Distributor was utilized throughout the entire procedure. They help with holding of the limb holding of retractors and exposure throughout. They help with nerve protection. Wound closure bandage application patient transfer. Without surg ica insurance assistant surgical time would have been increased, surgical outcome could have been less optimal. Procedure: Patient was taken to the OR. Transferred to the OR table. Appropriate timeouts performed. Appropriate IV antibiotic administered. Involved upper extremity had a well-padded tourniquet applied high on the arm. Upper extremity was prepped padded draped in usual orthopedic sterile fashion for the procedure. Limb was exsanguinated tourniquet applied to 250 mmHg. 10 cm incision was mapped out based between the olecranon and medial epicondyle. We mapped out the medial epicondyle. We mapped out a spot 1-1/2 cm anterior to the medial epicondyle. Skin incision was carried through skin subcutaneous tissue bringing us down over the nerve carefully. Bread Distributor held retractors. Ulnar nerve was decompressed starting proximal to the medial epicondyle extending proximally and distally several centimeters. Slight hourglass deformity of the nerve was noted at and just distal to the medial epicondyle. Nerve otherwise appeared healthy. At this point elbow was flexed and extended and no obvious subluxation of the nerve existed. Wound was thoroughly irrigated. Tourniquet was let down at 8 minutes. Bleeding easily controlled with the Bovie. Injected 10 cc of half percent bupivacaine plain. This was done in the surrounding soft tissues but not about the nerve. Wound was thoroughly irrigated. No undue bleeding noted. We then repaired the skin with a 2-0 Vicryl inverted followed by a skin prep and Steri-Strips and 4 x 4's ABD Kerlix Felix wrap. Sling if needed.
[2021-08-11] MEDS: Bupivacaine Mpf 0.5% 30 ML VIAL (14:19)
== END 2021-08-11 16:00 | disposition home or self-care (01) ==
LOC: SDC 11:20 → AC 11:20
PROVIDERS: PCP Internal Medicine; Referring Provider Orthopaedic Surgery; Visit Provider Orthopaedic Surgery
PROC: (CPT 64450; principal; 2021-08-11 12:45)
DX: G56.22 Lesion of ulnar nerve, left upper limb (principal); J44.9 Chronic obstructive pulmonary disease, unspecified; F17.210 Nicotine dependence, cigarettes, uncomplicated; G47.30 Sleep apnea, unspecified; I10 Essential (primary) hypertension; F32.A Depression, unspecified; Z85.3 Personal history of malignant neoplasm of breast; J45.909 Unspecified asthma, uncomplicated; M85.80 Other specified disorders of bone density and structure, unspecified site
CPT/HCPCS: 64450; 36415; 80048; 85025; 87426; 93005; C9803; J7120; J2405

== ENCOUNTER → 2021-09-30 | Outpatient (CLI) | payer MEDICARE, SELFPAY ==
--- NOTE | 2021-09-30 12:27 | CT_ITS ---
STUDY: LOW DOSE CT LUNG CANCER SCREENING REASON FOR EXAM: Female, 61 years old. Lung cancer screening -- 43 pk yr hx;current smoker; asymptomatic RADIATION DOSAGE (If Supplied By Facility): CTDIvol = ( 2.01 ) mGy, DLP = ( 71.48 ) mGycm TECHNIQUE: No contrast was administered. Low dose technique was utilized (average mAS-38 and kVp 120). 1.25 mm axial source images with a slice interval of 1.25-mm were reconstructed in lung windows. 2.5 mm axial source images with a slice interval of 2.5-mm were reconstructed in lung windows. 5.0 mm axial source images with a slice interval of 5.0-mm were reconstructed in soft tissue windows. COMPARISON: Comparison is made with prior study dated 08/27/2020. NODULES: No suspicious nodules are seen. Emphysema: Hyperinflation. Mild degree of emphysematous changes. Stable linear scarring along the medial aspect of the right middle lobe as well as the posterior aspect of the left lower lobe. Stable calcified granuloma in the left upper lobe. Endobronchial lesion: None Aorta: Unremarkable CORONARY ARTERIES: Coronary artery calcification is not seen. Heart: Unremarkable Pulmonary artery: Marked Mediastinal nodes: Unremarkable Other chest and abdominal findings: CT/Low Dose CT Lung Screening IMPRESSION: Lung-RADS category 2 - Continue annual screening with LDCT in 12 months. IMPORTANT NOTES FOR USE: ACR Lung-RADS Version 1.1 Assessment Categories Release Date: 2018 Category: Coded 0-4 bases on nodule(s) with highest degree of suspicion. Negative screen is defined as categories 1 and 2; a positive screen is defined as categories 3 and 4. Category 3 and 4A nodules that are unchanged on interval CT should be coded as category 2, and individuals returned to screening in 12 months. Category 4X: Category 3 or 4 nodules with additional imaging findings that increase the suspicion of lung cancer, such as spiculation, GGN that doubles in size in 1 year, enlarged lymph notes, etc. Category Modifiers: S (significant finding unrelated to lung cancer) Electronically Signed: Cale Green MD at 13:34 EDT ,
== END | disposition home or self-care (01) ==
LOC: CT 12:25
PROVIDERS: PCP Internal Medicine; Referring Provider Nurse Practitioner Family; Visit Provider Nurse Practitioner Family
DX: Z12.2 Encounter for screening for malignant neoplasm of respiratory organs (principal); Z87.891 Personal history of nicotine dependence
CPT/HCPCS: 71271

== ENCOUNTER → 2021-10-07 | Outpatient (CLI) | payer MEDICARE, SELFPAY ==
[2021-10-07 12:27] LABS: Absolute Lymphocyte Count 1.63 X10^3/uL (0.83-4.51); Absolute Neutrophil Count 3.2 X10^3/uL (2.0-7.7); Basophil# 0.07 X10^3/uL; Basophil% 1.3 % (0-1); Eosinophil# 0.09 X10^3/uL; Eosinophils% 1.7 % (0-5); Hematocrit 46.6 % (37-47); Hemoglobin 14.9 g/dL (12.0-15.0); Lymphocyte # 1.63 X10^3/ul (0.83-4.51); Mean Corpuscular Hgb 32.5 pg (27.0-32.0); Mean Corpuscular Volume 101.7 fL (81-99); Mean Platelet Vol. 10.3 fl (6.2-12.0); Monocyte# 0.25 X10^3/uL; Monocyte% 4.8 % (0-10); NRBC Flagged by Analyzer 0 % (0-5); Platelet Count 215 K/mm3 (150-450); RBC Distribution Width CV 12.3 % (11.6-14.6); RBC Distribution Width SD 46.4 fl (35.1-43.9); Red Blood Count 4.58 M/mm3 (4.2-5.4); White Blood Count 5.3 K/mm3 (4.4-11.0)
[2021-10-07 12:56] LABS: ALB/GLOB Ratio 1.2 RATIO (0.9-2.4); AST(SGOT) 21 U/L (15-37); Alanine Aminotransfer ALT/SGPT 20 U/L (13-56); Albumin, Serum 4.2 g/dL (3.2-5.0); Alkaline Phosphatase 71 U/L (45-117); Anion Gap 5 (5-15); BUN 23 mg/dL (7-18); BUN/Creat Ratio 22.5 RATIO (10-20); Calcium,Total 9.4 mg/dL (8.5-10.1); Chloride 105 mmol/L (98-107); Cholesterol 202 mg/dL (200); Creatinine, Serum 1.02 mg/dL (0.55-1.02); EST Glomerular Filtration Rate 59 mL/min (>60); Est Glom Filt Rate - Afr Amer 71 mL/min (>60); Globulin 3.4 g/dL (2.2-4.2); Glucose 69 mg/dL (74-106); High Density Lipoprotein 80 mg/dL; Potassium 4.1 mmol/L (3.5-5.1); Protein, Total 7.6 g/dL (6.4-8.2); Sodium Level 138 mmol/L (136-145); Triglycerides 74 mg/dL; Very Low Density Lipoprotein 15 mg/dL (5-40)
== END | disposition home or self-care (01) ==
LOC: BIMLAB 09:48
PROVIDERS: PCP Internal Medicine; Visit Provider Internal Medicine
DX: I10 Essential (primary) hypertension (principal); E78.5 Hyperlipidemia, unspecified
CPT/HCPCS: 36415; 80053; 80061; 85025

== ENCOUNTER → 2021-10-21 | Outpatient (CLI) | payer MEDICARE, SELFPAY ==
--- NOTE | 2021-10-21 08:11 | ECHOD_ITS ---
Reason For Study: MURMUR Procedure This was a 2D Doppler, Color Flow transthoracic echocardiogram. The exam was of adequate technical quality. Exam performed in department. Left Ventricle Normal LV size. Apical false tendon noted. Left ventricular systolic function is normal. The estimated ejection fraction is 65 %. There is evidence of diastolic dysfunction. No regional wall motion abnormalities noted. Right Ventricle Normal RV size. Normal systolic function. Atria The left atrium is mildly enlarged. Normal right atrium. No doppler evidence for ASD. Mitral Valve There is no mitral annular calcification. Mild focal mitral valve calcification of the anterior leaflet. Mild-Moderate (1-2+) eccentric mitral valve insufficiency. Tricuspid Valve Normal tricuspid valve. Mild to moderate (1-2+) tricuspid valve insufficiency. Right ventricular systolic pressure estimated to be 39 mmHg. Aortic Valve Trisinus/trileaflet aortic valve. Mild focal aortic valve calcification. Trivial aortic valve insufficiency. Pulmonic Valve The pulmonic valve is not well visualized. Trivial pulmonic valve insufficiency. Great Vessels Normal sized aortic root. Pericardium/Pleural No pericardial effusion. MMode/2D Measurements & Calculations LVIDd: 4.7 cm IVSd: 0.52 cm Ao root diam: 2.8 cm LVIDs: 3.1 cm LVPWd: 0.64 cm RVDd: 3.2 cm FS: 34.4 % LAV(MOD-sp4): 63.3 ml LVAd ap4: 20.4 cm2 SV(MOD-sp4): 38.7 ml LVLd ap4: 6.0 cm EDV(MOD-sp4): 55.3 ml EDV(sp4-el): 58.8 ml LVAs ap4: 9.4 cm2 LVLs ap4: 4.4 cm ESV(MOD-sp4): 16.6 ml ESV(sp4-el): 17.0 ml EF(MOD-sp4): 70.1 % EF(sp4-el): 71.1 % SV(sp4-el): 41.8 ml LA A4 area: 21.5 cm2 LA dimension(2D): 3.5 cm RA A4 area: 13.8 cm2 Time Measurements MV dec time: 0.16 sec Doppler Measurements & Calculations MV E max denny: 89.0 cm/sec Lat Peak E' Denny: 9.2 cm/sec Med Peak E' Denny: 9.5 cm/sec MV A max denny: 40.3 cm/sec E/E' lat: 9.6 E/E' med: 9.3 MV E/A: 2.2 Ao V2 max: 99.7 cm/sec LV V1 max: 70.7 cm/sec MV dec slope: 603.5 cm/sec2 Ao max P.0 mmHg LV V1 max P.0 mmHg Ao V2 mean: 71.7 cm/sec LV V1 mean P.1 mmHg Ao mean P.3 mmHg LV V1 mean: 48.3 cm/sec Ao V2 VTI: 26.3 cm LV V1 VTI: 18.2 cm PA V2 max: 83.8 cm/sec TR max denny: 301.1 cm/sec TR max P.3 mmHg ECHO/Echo Complete Interpretation Summary Left ventricular systolic function is normal. The estimated ejection fraction is 65 %. Apical false tendon noted. The left atrium is mildly enlarged. Mild focal mitral valve calcification of the anterior leaflet. Mild-Moderate (1-2+) eccentric mitral valve insufficiency. Mild to moderate (1-2+) tricuspid valve insufficiency. Mild focal aortic valve calcification. Trivial aortic valve insufficiency. Trivial pulmonic valve insufficiency. Right ventricular systolic pressure estimated to be 39 mmHg. There is evidence of diastolic dysfunction. Ordering Physician: John Dobson Referring Physician: Jayden Smith Performed By: Karly Ramirez RCS
== END | disposition home or self-care (01) ==
LOC: CVS 07:43
PROVIDERS: PCP Internal Medicine; Visit Provider Internal Medicine Cardiovascular Disease
DX: R07.89 Other chest pain (principal); I38 Endocarditis, valve unspecified
CPT/HCPCS: 93306

== ENCOUNTER → 2021-10-30 | Outpatient (CLI) | payer MEDICARE, SELFPAY ==
--- NOTE | 2021-10-30 08:39 | BI_ITS ---
MAMMOGRAPHY - BILATERAL SCREENING REASON FOR EXAM: Female, 61 years old. Routine annual screening examination. PERTINENT HISTORY: Personal history of breast cancer. Prior right lumpectomy and radiation treatment. TECHNIQUE: Digital bilateral breast sheeba (3D mammographic acquisition) in the CC and MLO projections. 2-D mediolateral oblique (MLO) and craniocaudad (CC) views of both breasts were obtained. CAD: Full Field Digital Mammography with Computer Added Detection was performed. COMPARISON: Comparison is made with prior study dated 08/28/2020 and 09/08/2018. FINDINGS: Breast Composition: The breasts are heterogeneously dense, which may obscure small masses. There are no dominant masses or suspicious calcifications. Once again, the patient is status post lumpectomy in the deep inferior medial aspect of the right breast with postoperative changes and overlying skin thickening. There has been no change. No other significant abnormalities are identified. There has been no significant change since the prior study. BI/SCRN MAMM (CAD)W/SHEEBA BILAT IMPRESSION: Stable bilateral screening mammogram. Yearly follow-up mammogram recommended. (A) ASSESSMENT CATEGORY: BIRADS Category 2: Benign. A letter regarding these results will be sent to the patient by the facility within 30 days. Approximately 10% of breast cancers are not detected by mammography. A normal mammogram should not delay biopsy of a clinically suspicious abnormality. [id number] Electronically Signed: Cale Green MD at 9:55 EDT ,
== END | disposition home or self-care (01) ==
LOC: OPBI 08:28
PROVIDERS: PCP Internal Medicine; Visit Provider Internal Medicine
DX: Z12.31 Encounter for screening mammogram for malignant neoplasm of breast (principal); Z85.3 Personal history of malignant neoplasm of breast
CPT/HCPCS: 77063; 77067

== ENCOUNTER → 2022-08-27 | Outpatient (CLI) | payer MEDICARE, SELFPAY ==
[2022-08-27 08:59] LABS: Vitamin B12 458 pg/mL (211-911); Vitamin D,25 Hydroxy 49.8 ng/mL
[2022-08-27 09:23] LABS: Cholesterol 208 mg/dL (200); Ferritin 358 ng/mL (8-252); High Density Lipoprotein 89 mg/dL; Iron 112 ug/dL (50-170); Iron Binding Capacity,Total 260 ug/dL (250-450); PERCENT IRON SATURATION 43.1 % (15.0-55.0); Thyroid Stim Hormone (TSH) 2.46 uIU/mL (0.358-3.74); Triglycerides 89 mg/dL; Very Low Density Lipoprotein 18 mg/dL (5-40)
== END | disposition home or self-care (01) ==
LOC: LAB 07:29
PROVIDERS: PCP Internal Medicine; Referring Provider Counselor Mental Health; Visit Provider Counselor Mental Health
DX: E55.9 Vitamin D deficiency, unspecified (principal); Z79.899 Other long term (current) drug therapy; E78.2 Mixed hyperlipidemia; E61.4 Chromium deficiency
CPT/HCPCS: 36415; 80061; 82306; 82607; 82728; 82746; 83036; 83540; 83550; 84443

== ENCOUNTER 2022-11-24 13:22 | Outpatient (CLI) | payer MEDICARE, SELFPAY ==
[2022-11-24 13:23] LABS: Absolute Lymphocyte Count 2.19 X10^3/uL (0.83-4.51); Basophil# 0.08 X10^3/uL; Basophil% 1.2 % (0-1); Eosinophil# 0.12 X10^3/uL; Eosinophils% 1.8 % (0-5); Hematocrit 41.6 % (37-47); Hemoglobin 13.5 g/dL (12.0-15.0); Lymphocyte # 2.19 X10^3/ul (0.83-4.51); Lymphocyte % 32.4 % (19-41); Mean Corp Hgb Conc 32.5 g/dL (32-36); Mean Corpuscular Volume 101.7 fL (81-99); Monocyte# 0.37 X10^3/uL; Monocyte% 5.5 % (0-10); NRBC Flagged by Analyzer 0 % (0-5); Neutrophil # 3.99 X10^3/uL (2.7-7.7); Platelet Count 255 K/mm3 (150-450); RBC Distribution Width CV 12.5 % (11.6-14.6); RBC Distribution Width SD 47.2 fl (35.1-43.9); Red Blood Count 4.09 M/mm3 (4.2-5.4); White Blood Count 6.8 K/mm3 (4.4-11.0)
--- NOTE | 2022-11-24 13:38 | BI_ITS ---
MAMMOGRAPHY - BILATERAL SCREENING REASON FOR EXAM: Female, 62 years old. Routine annual screening examination. PERTINENT HISTORY: Personal history of breast cancer at age 55, status post lumpectomy and radiation therapy. TECHNIQUE: Digital bilateral breast sheeba (3D mammographic acquisition) in the CC and MLO projections. 2-D mediolateral oblique (MLO) and craniocaudad (CC) views of both breasts were obtained. CAD: Full Field Digital Mammography with Computer Added Detection was performed. COMPARISON: Screening mammogram from 10/30/2021, 08/28/2020 FINDINGS: Breast Composition: The breasts are heterogeneously dense, which may obscure small masses. There are no dominant masses or suspicious calcifications. Stable partially visualized biopsy marker from prior lumpectomy in the right breast. No other significant abnormalities are identified. There has been no significant change since the prior study. BI/SCRN MAMM (CAD)W/SHEEBA BILAT IMPRESSION: Stable bilateral screening mammogram. Yearly follow-up mammogram recommended. (A) ASSESSMENT CATEGORY: BIRADS Category 2: Benign. A letter regarding these results will be sent to the patient by the facility within 30 days. Approximately 10% of breast cancers are not detected by mammography. A normal mammogram should not delay biopsy of a clinically suspicious abnormality. Electronically Signed: Yadiel Ayala DO at 15:19 EDT ,
--- NOTE | 2022-11-24 13:41 | BD_ITS ---
STUDY: DUAL ENERGY X-RAY ABSORPTIOMETRY / DXA REASON FOR EXAM: Female, 62 years old. Osteopenia TECHNIQUE: Bone Mineral Density (BMD) measurements of lumbar spine and bilateral hips were obtained. COMPARISON: Comparison is made with prior study of August 28, 2020. FINDINGS: Lumbar Spine (L1-L4): g/cm2 (0.860) / T-score (-1.7) / Z-score (-0.2) Findings are suggestive of osteopenia with a moderate fracture risk. Left Femur Total: g/cm2 (0.841) / T-score (-0.8) / Z-score (0.2) Left Femoral Neck: g/cm2 (0.666) / T-score (-1.6) / Z-score (-0.3) Right Femur Total: g/cm2 (0.796) / T-score (-1.2) / Z-score (-0.1) Right Femoral Neck: g/cm2 (0.593) / T-score (-2.3) / Z-score (-0.9) The T-Scores on the most recent prior examination were: Lumbar Spine (L1-L4): There has been improvement of bone density since the previous examination. Left Femur Total: which represents a worsening of 0.7%. Right Femur Total: which represents a worsening of 1.5%. BD/Dexa Bone Density Study IMPRESSION: The patient is considered osteopenic as outlined below according to World Nathan Organization (WHO) criteria with a high fracture risk. There has been worsening of bone density since the previous examination. Reference Information: The T-score is the number of standard deviations above or below the standard which is normal for young adults at their peak bone mineral density. The World Health Organization (WHO) interprets the T-scores as follows: Above -1 Normal bone density Between -1 and -2.5 Osteopenia Equal to / or below -2.5 Osteoporosis As a practical clinical guideline, osteopenia may be graded as follows: Mild -1 through -1.5 Moderate -1.6 through -2.0 Severe -2.1 through -2.4 The Z-score is the number of standard deviations above or below age-matched controls. A Z-score of less than -1.5 would be considered abnormal. References: 1. NIH Osteoporosis and Related Bone Diseases www osteo.org 2. International Society for Clinical Densitometry www iscd.org 3. National Osteoporosis Foundation www nof.org Electronically Signed: Cale Green MD at 15:33 EDT ,
[2022-11-24 14:00] LABS: ALB/GLOB Ratio 1.3 RATIO (0.9-2.4); AST(SGOT) 23 U/L (15-37); Alanine Aminotransfer ALT/SGPT 26 U/L (13-56); Albumin, Serum 4.1 g/dL (3.2-5.0); Alkaline Phosphatase 75 U/L (45-117); Anion Gap 2 (5-15); BUN 20 mg/dL (7-18); BUN/Creat Ratio 19.6 RATIO (10-20); Calcium,Total 8.9 mg/dL (8.5-10.1); Chloride 107 mmol/L (98-107); Creatinine, Serum 1.02 mg/dL (0.55-1.02); EST Glomerular Filtration Rate 58 mL/min (>60); Est Glom Filt Rate - Afr Amer 71 mL/min (>60); Globulin 3.2 g/dL (2.2-4.2); Glucose 109 mg/dL (74-106); Protein, Total 7.3 g/dL (6.4-8.2); Sodium Level 140 mmol/L (136-145)
== END 2022-11-24 23:59 | disposition home or self-care (01) ==
LOC: OPBD 13:22
PROVIDERS: PCP Internal Medicine; Referring Provider Internal Medicine; Visit Provider Internal Medicine
DX: Z12.31 Encounter for screening mammogram for malignant neoplasm of breast (principal); Z85.3 Personal history of malignant neoplasm of breast; Z78.0 Asymptomatic menopausal state; I10 Essential (primary) hypertension
CPT/HCPCS: 36415; 77063; 77067; 77080; 80053; 85025

== ENCOUNTER → 2022-12-31 | Outpatient (CLI) | payer MEDICARE, SELFPAY ==
--- NOTE | 2022-12-31 06:48 | CT_ITS ---
STUDY: LOW DOSE CT LUNG CANCER SCREENING REASON FOR EXAM: Female, 62 years old. Lung ca screening RADIATION DOSAGE (If Supplied By Facility): CTDIvol = ( 2.01 ) mGy, DLP = ( 67.71 ) mGycm TECHNIQUE: No contrast was administered. Low dose technique was utilized (average mAS-38 and kVp 120). 1.25 mm axial source images with a slice interval of 1.25-mm were reconstructed in lung windows. 2.5 mm axial source images with a slice interval of 2.5-mm were reconstructed in lung windows. 5.0 mm axial source images with a slice interval of 5.0-mm were reconstructed in soft tissue windows. COMPARISON: CT Chest Brice 2021 NODULES: No suspicious nodules are seen. Emphysema: Hyperinflation. Mild degree of emphysematous changes. Stable linear scarring along the medial aspect of the right middle lobe as well as the posterior aspect of the left lower lobe. Stable calcified granuloma in the left upper lobe. Endobronchial lesion: None Aorta: Unremarkable CORONARY ARTERIES: Coronary artery calcification is not seen. Heart: Unremarkable Pulmonary artery: Marked Mediastinal nodes: Unremarkable Other chest and abdominal findings: There are several cysts in the liver, the largest is in the segment #4 of the liver measures approximately 1.4 cm is stable since the previous study. CT/Low Dose CT Lung Screening IMPRESSION: Lung-RADS category 2 benign findings- Continue annual screening with LDCT in 12 months. IMPORTANT NOTES FOR USE: ACR Lung-RADS Version 1.1 Assessment Categories Release Date: 2018 Category: Coded 0-4 bases on nodule(s) with highest degree of suspicion. Negative screen is defined as categories 1 and 2; a positive screen is defined as categories 3 and 4. Category 3 and 4A nodules that are unchanged on interval CT should be coded as category 2, and individuals returned to screening in 12 months. Category 4X: Category 3 or 4 nodules with additional imaging findings that increase the suspicion of lung cancer, such as spiculation, GGN that doubles in size in 1 year, enlarged lymph notes, etc. Category Modifiers: S (significant finding unrelated to lung cancer) Electronically Signed: Alexandro Hogue MD at 8:20 EDT ,
== END | disposition home or self-care (01) ==
LOC: CT 06:48
PROVIDERS: PCP Internal Medicine; Referring Provider Internal Medicine; Visit Provider Internal Medicine
DX: F17.210 Nicotine dependence, cigarettes, uncomplicated (principal)
CPT/HCPCS: 71271

== ENCOUNTER → 2023-02-19 | Outpatient (CLI) | payer MEDICARE, SELFPAY ==
--- NOTE | 2023-02-20 06:54 | PFT ---
INTRODUCTION: The patient is a 63-year-old female who presents for pulmonary function studies secondary to a diagnosis of shortness of breath. Respiratory therapy reported good patient effort. Bronchodilators were used during testing. INTERPRETATION: Forced expiration spirometry demonstrates no evidence of a large airways obstructive ventilatory defect. There was no significant response to aerosolized bronchodilators. Spirograms are of fair quality and plateau gradually. Body plethysmography was performed and revealed lung volumes to be within normal limits. Diffusing capacity by single breath CO was also within normal limits. IMPRESSION: Grossly normal pulmonary function studies.
== END | disposition home or self-care (01) ==
LOC: PSN 08:13
PROVIDERS: PCP Internal Medicine; Referring Provider Internal Medicine; Visit Provider Internal Medicine
DX: R06.02 Shortness of breath (principal)
CPT/HCPCS: 94060; 94726; 94729

== ENCOUNTER → 2023-05-17 | Outpatient (CLI) | payer MEDICARE, SELFPAY ==
[2023-05-17 08:56] LABS: Red Blood Cells-Urine 0 SEEN /hpf (0-5)
[2023-05-17 11:09] LABS: Vitamin D,25 Hydroxy 33.6 ng/mL
[2023-05-17 11:24] LABS: Color, Urine Yellow (Yellow); Glucose, Dipstick Normal (Normal); Ketone-Dipstick 5 mg/dl (Negative); Leukocyte Esterase-Dipstick 25 /ul (Negative); Nitrite-Dipstick Negative (Negative); Occult Blood-Urine Negative /ul (Negative); Protein-Dipstick 15 mg/dl (Negative); Specific Gravity, Urine 1.025 (1.002-1.030); Urine Bilirubin Dipstick Negative (Negative); Urine Clarity Clear (Clear); Urine Urobilinogen 1 mg/dl (Normal)
[2023-05-17 11:54] LABS: Bacteria 1+ /hpf (None Seen); Mucous, Urine 1+ /hpf (<or=2+); Squamous Epithelial Cells - UA 0-5 SEEN /hpf (5-10); White Blood Cells 0-5 SEEN /hpf (0-5)
[2023-05-17 13:20] LABS: Anion Gap 5 (5-15); BUN 18 mg/dL (7-18); BUN/Creat Ratio 17.5 RATIO (10-20); Calcium,Total 9.1 mg/dL (8.5-10.1); Chloride 110 mmol/L (98-107); Creatinine, Serum 1.03 mg/dL (0.55-1.02); EST Glomerular Filtration Rate 58 mL/min (>60); Est Glom Filt Rate - Afr Amer 70 mL/min (>60); Glucose 88 mg/dL (74-106); Potassium 4.8 mmol/L (3.5-5.1); Sodium Level 141 mmol/L (136-145)
== END | disposition home or self-care (01) ==
LOC: BIMLAB 08:53
PROVIDERS: PCP Internal Medicine; Referring Provider Internal Medicine; Visit Provider Internal Medicine
DX: M85.80 Other specified disorders of bone density and structure, unspecified site (principal); I10 Essential (primary) hypertension; R30.0 Dysuria
CPT/HCPCS: 36415; 80048; 81001; 82306; 87086; 87088

== ENCOUNTER → 2023-08-16 | Outpatient (CLI) | payer MEDICARE, SELFPAY ==
[2023-08-16 12:10] LABS: Absolute Lymphocyte Count 1.78 X10^3/uL (0.83-4.51); Absolute Neutrophil Count 3.5 X10^3/uL (2.0-7.7); Basophil# 0.07 X10^3/uL; Basophil% 1.2 % (0-1); Eosinophils% 1.8 % (0-5); Hematocrit 43.6 % (37-47); Hemoglobin 14.2 g/dL (12.0-15.0); Lymphocyte # 1.78 X10^3/ul (0.83-4.51); Lymphocyte % 31.2 % (19-41); Mean Corp Hgb Conc 32.6 g/dL (32-36); Mean Corpuscular Hgb 33.5 pg (27.0-32.0); Mean Corpuscular Volume 102.8 fL (81-99); Mean Platelet Vol. 10.2 fl (6.2-12.0); Monocyte# 0.29 X10^3/uL; Monocyte% 5.1 % (0-10); NRBC Flagged by Analyzer 0 % (0-5); Neutrophil # 3.45 X10^3/uL (2.7-7.7); Neutrophil % 60.5 % (47-70); Platelet Count 265 K/mm3 (150-450); RBC Distribution Width CV 13.2 % (11.6-14.6); RBC Distribution Width SD 50.4 fl (35.1-43.9); Red Blood Count 4.24 M/mm3 (4.2-5.4); White Blood Count 5.7 K/mm3 (4.4-11.0)
[2023-08-16 12:31] LABS: ALB/GLOB Ratio 1.2 RATIO (0.9-2.4); AST(SGOT) 22 U/L (15-37); Alanine Aminotransfer ALT/SGPT 23 U/L (13-56); Albumin, Serum 3.7 g/dL (3.2-5.0); Alkaline Phosphatase 46 U/L (45-117); Anion Gap 3 (5-15); BUN 14 mg/dL (7-18); BUN/Creat Ratio 14.5 RATIO (10-20); Calcium,Total 8.5 mg/dL (8.5-10.1); Chloride 109 mmol/L (98-107); Cholesterol 182 mg/dL (200); Creatinine, Serum 0.97 mg/dL (0.55-1.02); EST Glomerular Filtration Rate 62 mL/min (>60); Est Glom Filt Rate - Afr Amer 75 mL/min (>60); Globulin 3.1 g/dL (2.2-4.2); Glucose 82 mg/dL (74-106); High Density Lipoprotein 80 mg/dL; Potassium 4.2 mmol/L (3.5-5.1); Protein, Total 6.8 g/dL (6.4-8.2); Sodium Level 141 mmol/L (136-145); Triglycerides 69 mg/dL; Very Low Density Lipoprotein 14 mg/dL (5-40)
[2023-08-16 17:31] LABS: Vitamin D,25 Hydroxy 72.3 ng/mL
== END | disposition home or self-care (01) ==
LOC: BIMLAB 08:24
PROVIDERS: PCP Internal Medicine; Referring Provider Internal Medicine; Visit Provider Internal Medicine
DX: M85.80 Other specified disorders of bone density and structure, unspecified site (principal); E78.5 Hyperlipidemia, unspecified; I10 Essential (primary) hypertension
CPT/HCPCS: 36415; 80053; 80061; 82306; 85025

== ENCOUNTER → 2023-12-20 | Outpatient (CLI) | payer MEDICARE, SELFPAY ==
[2023-12-20 13:01] LABS: Anion Gap 4 (5-15); BUN 17 mg/dL (7-18); BUN/Creat Ratio 13.7 RATIO (10-20); Calcium,Total 9.2 mg/dL (8.5-10.1); Chloride 107 mmol/L (98-107); Creatinine, Serum 1.24 mg/dL (0.55-1.02); EST Glomerular Filtration Rate 46 mL/min (>60); Est Glom Filt Rate - Afr Amer 56 mL/min (>60); Glucose 79 mg/dL (74-106); Potassium 4.6 mmol/L (3.5-5.1); Sodium Level 140 mmol/L (136-145)
== END | disposition home or self-care (01) ==
LOC: BIMLAB 08:37
PROVIDERS: PCP Internal Medicine; Referring Provider Internal Medicine; Visit Provider Internal Medicine
DX: I10 Essential (primary) hypertension (principal)
CPT/HCPCS: 36415; 80048

== ENCOUNTER → 2024-01-04 | Outpatient (CLI) | payer MEDICARE, SELFPAY ==
--- NOTE | 2024-01-04 08:20 | BI_ITS ---
MAMMOGRAPHY - BILATERAL SCREENING REASON FOR EXAM: Female, 64 years old. Routine annual screening examination. PERTINENT HISTORY: Personal history of breast cancer. Prior right lumpectomy and radiation treatment. TECHNIQUE: Digital bilateral breast sheeba (3D mammographic acquisition) in the CC and MLO projections. 2-D mediolateral oblique (MLO) and craniocaudad (CC) views of both breasts were obtained. CAD: Full Field Digital Mammography with Computer Added Detection was performed. COMPARISON: Comparison is made with prior study dated November 24, 2022 and October 30, 2021. FINDINGS: Breast Composition: The breasts are heterogeneously dense, which may obscure small masses. There is a 5.3 mm x 8.3 mm well-defined nodule in the deep slightly inferior medial aspect of the left breast. Correlation with ultrasound is recommended. A linear calcification is seen in the deep central medial aspect of the right breast. No other significant abnormalities are identified. BI/SCRN MAMM (CAD)W/SHEEBA BILAT IMPRESSION: New 5.3 mm x 8.3 mm well-defined nodule in the deep slightly inferior medial aspect of the left breast. Correlation with ultrasound is recommended. ASSESSMENT CATEGORY: BIRADS Category 0: Incomplete. Need additional imaging evaluation. A letter regarding these results will be sent to the patient by the facility within 30 days. Approximately 10% of breast cancers are not detected by mammography. A normal mammogram should not delay biopsy of a clinically suspicious abnormality. [id number] Electronically Signed: Cale Green MD at 9:27 EDT ,
== END | disposition home or self-care (01) ==
PROVIDERS: PCP Internal Medicine; Referring Provider Internal Medicine; Visit Provider Internal Medicine
DX: Z12.31 Encounter for screening mammogram for malignant neoplasm of breast (principal); Z85.3 Personal history of malignant neoplasm of breast
CPT/HCPCS: 77063; 77067

== ENCOUNTER → 2024-01-13 | Outpatient (CLI) | payer MEDICARE, SELFPAY ==
--- NOTE | 2024-01-13 07:47 | US_ITS ---
STUDY: ULTRASOUND BREAST - LEFT REASON FOR EXAM: Female, 64 years old. Abnormal screening mammogram. TECHNIQUE: Axial and longitudinal images of the LEFT breast were performed with a high resolution ultrasound transducer. # OF IMAGES: 9 COMPARISON: Comparison is made with prior mammogram dated January 04, 2024. FINDINGS: LEFT Breast: The mammographic abnormality corresponds to a 6 mm x 8 mm x 4 mm cyst at the 9:00 position of the breast at 3 cm from the nipple. US/Breast Limited Unilateral IMPRESSION: The mammographic abnormality corresponds to a 6 mm x 8 mm x 4 mm cyst at the 9:00 position of the breast at 3 cm from the nipple. Routine annual mammographic follow-up recommended. ASSESSMENT CATEGORY: BIRADS Category 2: Benign. A letter regarding these results will be sent to the patient by the facility within 30 days. Electronically Signed: Cale Green MD at 9:27 EDT ,
== END | disposition home or self-care (01) ==
PROVIDERS: PCP Internal Medicine; Referring Provider Internal Medicine; Visit Provider Internal Medicine
DX: N60.02 Solitary cyst of left breast (principal)
CPT/HCPCS: 76642

== ENCOUNTER → 2024-01-18 | Outpatient (CLI) | payer MEDICARE, SELFPAY ==
--- NOTE | 2024-01-18 13:01 | CT_ITS ---
HISTORY: Lung cancer screening, greater than 20 pk yr hx, current smoker; asymptomatic. TECHNIQUE: Helically acquired images were obtained of the chest without contrast. A radiation dose optimization technique was used for this scan. 817 images. COMPARISON: 12/31/2022. FINDINGS: LARGE AIRWAYS: Patent. LUNGS: Chronic hyperinflation with mild calcified right apical scarring again seen. Very mild linear scarring in the lower lobes. No new suspicious nodule or acute alveolar consolidation. PLEURA: No pneumothorax or significant pleural effusion. HEART/PERICARDIUM: Heart within normal limits in size with mild coronary artery calcification. No pericardial effusion. VESSELS: Thoracic aorta nondilated. MEDIASTINUM/DASHA: No pathologically enlarged adenopathy. UPPER ABDOMEN: Small hepatic cyst. CHEST WALL: Intact osseous structures. Surgical clip again seen in the right breast. CT/Low Dose CT Lung Screening IMPRESSION: Lung-RADS category 2: Continue annual screening with low dose CT. Electronically Signed: Marlys Maldonado MD at 14:14 EDT ,
== END | disposition home or self-care (01) ==
LOC: CT 13:00
PROVIDERS: PCP Internal Medicine; Referring Provider Nurse Practitioner Family; Visit Provider Nurse Practitioner Family
DX: Z12.2 Encounter for screening for malignant neoplasm of respiratory organs (principal); Z87.891 Personal history of nicotine dependence
CPT/HCPCS: 71271

== ENCOUNTER → 2024-04-19 | Outpatient (CLI) | payer MEDICARE, SELFPAY ==
[2024-04-19 13:00] LABS: ALB/GLOB Ratio 1.5 RATIO (0.9-2.4); AST(SGOT) 21 U/L (15-37); Alanine Aminotransfer ALT/SGPT 25 U/L (13-56); Albumin, Serum 4.1 g/dL (3.2-5.0); Alkaline Phosphatase 38 U/L (45-117); Anion Gap 5 (5-15); BUN 19 mg/dL (7-18); BUN/Creat Ratio 18.3 RATIO (10-20); Calcium,Total 8.7 mg/dL (8.5-10.1); Chloride 109 mmol/L (98-107); Creatinine, Serum 1.04 mg/dL (0.55-1.02); EST Glomerular Filtration Rate 57 mL/min (>60); Est Glom Filt Rate - Afr Amer 69 mL/min (>60); Globulin 2.8 g/dL (2.2-4.2); Glucose 86 mg/dL (74-106); Potassium 4.4 mmol/L (3.5-5.1); Protein, Total 6.9 g/dL (6.4-8.2); Sodium Level 140 mmol/L (136-145)
== END | disposition home or self-care (01) ==
LOC: BIMLAB 09:26
PROVIDERS: PCP Internal Medicine; Referring Provider Internal Medicine; Visit Provider Internal Medicine
DX: I10 Essential (primary) hypertension (principal)
CPT/HCPCS: 36415; 80053

== ENCOUNTER → 2024-05-19 | Outpatient (CLI) | payer MEDICARE, SELFPAY ==
--- NOTE | 2024-05-19 10:16 | RAD_ITS ---
EXAM: XR Left Ribs and AP Chest, 3 or More Views CLINICAL INDICATION: TECHNIQUE: Frontal and oblique views of the left ribs and frontal view of the chest. COMPARISON: No relevant prior studies available. FINDINGS: LUNGS AND PLEURAL SPACES: Unremarkable. No consolidation. No pneumothorax. HEART: Unremarkable. No cardiomegaly. MEDIASTINUM: Unremarkable. Normal mediastinal contour. BONES/JOINTS: Unremarkable. No displaced rib fractures. RAD/Ribs Uni Min 3V w/PA Chest IMPRESSION: No displaced rib fractures. Reading Location: [facility]
== END | disposition home or self-care (01) ==
LOC: RAD 10:15
PROVIDERS: PCP Internal Medicine; Referring Provider Internal Medicine; Visit Provider Internal Medicine
DX: R07.81 Pleurodynia (principal)
CPT/HCPCS: 71101

== ENCOUNTER → 2024-11-01 | Outpatient (CLI) | payer MEDICARE, SELFPAY ==
[2024-11-01 12:02] LABS: Hematocrit 42.6 % (37-47); Hemoglobin 14.1 g/dL (12.0-15.0); Immature Granulocytes Count 0.020 X10^3/uL (0.0-0.0); Mean Corp Hgb Conc 33.1 g/dL (32-36); Mean Corpuscular Volume 100.7 fL (81-99); Mean Platelet Vol. 9.9 fl (6.2-12.0); NRBC Flagged by Analyzer 0 % (0-5); Platelet Count 244 K/mm3 (150-450); RBC Distribution Width CV 12.8 % (11.6-14.6); RBC Distribution Width SD 47.8 fl (35.1-43.9); Red Blood Count 4.23 M/mm3 (4.2-5.4); White Blood Count 6.1 K/mm3 (4.4-11.0)
[2024-11-01 13:39] LABS: AST(SGOT) 30 U/L (<=31); Alanine Aminotransfer ALT/SGPT 23 U/L (<=34); Albumin, Serum 4.3 g/dL (3.4-4.8); Alkaline Phosphatase 53 U/L (35-104); Anion Gap 10 (5-15); BUN 18 mg/dL (4-19); BUN/Creat Ratio 17.9 RATIO (10-20); Calcium,Total 9.2 mg/dL (7.6-11.0); Carbon Dioxide 25.6 mmol/L (21.0-32.0); Chloride 104 mmol/L (98-108); Cholesterol 170 mg/dL (<=200); Globulin 2.4 g/dL (2.2-4.2); Glucose 83 mg/dL (70-99); Low Density Lipoprotein Calc. 68 mg/dL; Potassium 4.5 mmol/L (3.3-5.1); Triglycerides 45 mg/dL; Very Low Density Lipoprotein 9 mg/dL (5-40); Vitamin D,25 Hydroxy 65.9 ng/mL (30-100); cholesterol:hdl ratio screen 1.83
== END | disposition home or self-care (01) ==
LOC: LAB 10:48
PROVIDERS: PCP Internal Medicine; Referring Provider Internal Medicine; Visit Provider Internal Medicine
DX: I10 Essential (primary) hypertension (principal); M81.0 Age-related osteoporosis without current pathological fracture; E78.5 Hyperlipidemia, unspecified
CPT/HCPCS: 36415; 80053; 80061; 82306; 85025

== ENCOUNTER → 2024-11-16 | Outpatient (CLI) | payer MEDICARE, SELFPAY ==
--- NOTE | 2024-11-16 09:17 | RAD_ITS ---
PROCEDURE: L/S SPINE MIN 4 VIEWS 11/16/2024 REASON FOR EXAM: RADICULOPATHY TECHNIQUE: L/S SPINE MIN 4 VIEWS COMPARISON: None. FINDINGS: BONES: Five [id number] lumbar vertebral bodies. No fracture or focal osseous lesion. Anatomic spinal alignment. Mild thoracolumbar levoscoliosis. DISC/DEGENERATIVE CHANGES: Mild disc space narrowing and small vertebral endplate osteophytes at multiple levels. L4-L5 and L5-S1 facet arthropathy. SOFT TISSUES: Multiple pelvic surgical clips. RAD/L/S Spine Min 4 Views IMPRESSION: 1. No acute osseous abnormality seen. 2. Mild spondylosis and degenerative disc disease. Reading Location: [id number]
== END | disposition home or self-care (01) ==
LOC: RAD 09:17
PROVIDERS: PCP Internal Medicine; Referring Provider Internal Medicine; Visit Provider Internal Medicine
DX: M54.16 Radiculopathy, lumbar region (principal)
CPT/HCPCS: 72110